=== PATIENT | female | born 1950 | race Caucasian/White ===

== ENCOUNTER → 2016-11-14 | Outpatient (CLI) | payer MEDICARE, OTHER ==
[~2016-11-14] MED LIST: CARV6.252 PO; DIGO0.25 PO; FURO40TA PO; LISI10TA3 PO
[2016-11-14 14:26] LABS: ANION GAP 11 MEQ/L (5-15); AST (GOT) 23 U/L (15-37); BICARBONATE 28.4 MEQ/L (21.0-32.0); BLOOD UREA NITROGEN 11 MG/DL (7-18); CHLORIDE 98 MEQ/L (98-107); GLOMERULAR FILTRATION RATE 52 ML/MIN (>89); GLUCOSE,FASTING 103 MG/DL (74-99); POTASSIUM 3.1 MEQ/L (3.5-5.1); SODIUM (NA) 137 MEQ/L (136-145)
[2016-11-14 14:27] LABS: ALT (GPT) 19 U/L (10-53)
[2016-11-14 14:38] LABS: ALKALINE PHOSPHATASE 47 U/L (45-117); TOTAL BILIRUBIN ADULT 0.7 MG/DL (0.2-1.0)
== END ==
LOC: CLAB 13:17
PROVIDERS: ATTEND Internal Medicine Interventional Cardiology
DX: I42.9 Cardiomyopathy, unspecified (principal); I50.9 Heart failure, unspecified
CPT/HCPCS: 36415; 80053; 84443

== ENCOUNTER → 2016-11-21 | Outpatient (CLI) | payer MEDICARE, OTHER ==
[2016-11-21 13:59] LABS: POTASSIUM 5.5 MEQ/L (3.5-5.1)
== END ==
LOC: CLAB 13:11
PROVIDERS: ATTEND Internal Medicine Interventional Cardiology
DX: I50.9 Heart failure, unspecified (principal); R06.02 Shortness of breath; Q25.3 Supravalvular aortic stenosis; I34.0 Nonrheumatic mitral (valve) insufficiency; I36.1 Nonrheumatic tricuspid (valve) insufficiency; I42.9 Cardiomyopathy, unspecified; I47.1 Supraventricular tachycardia
CPT/HCPCS: 36415; 80048

== ENCOUNTER 2016-12-06 10:15 | Day surgery (SDC) | payer MEDICARE, OTHER ==
[~2016-12-06] VITALS: Ht 167.6 cm; Wt 80.8 kg
[2016-12-06] MEDS ORDERED: IOHEXOL 350 MG/ML 50 ML BTL (for Cath Lab) OTHER ONE (10:16)
[2016-12-06] MEDS ORDERED: IOHEXOL 350 MG/ML 100 ML BTL (for Cath Lab) OTHER ONE (10:16)
[2016-12-06] MEDS ORDERED: NS 1000P @30 MLS/HR (KVO) IV SCH (10:45)
[2016-12-06 11:11] VITALS: BP 113/66; PULSE 59; RESP 18; TEMP 98.2; O2SAT 97
[2016-12-06] MEDS ORDERED: LISI10TA3 PO (11:14)
[2016-12-06] MEDS ORDERED: DIGO0.25 PO (11:14)
[2016-12-06] MEDS ORDERED: CARV6.252 PO (11:14)
[2016-12-06] MEDS ORDERED: FURO40TA PO (11:14)
[2016-12-06 11:43] LABS: AUTOMATED NEUTROPHIL # 4.4 TH/MM3 (1.8-7.7); BASOPHIL # 0.1 TH/MM3 (0-0.2); EOSINOPHIL # 0.5 TH/MM3 (0-0.4); EOSINOPHIL % 6.8 % (0.0-4.0); HEMATOCRIT 43.9 % (35.0-46.0); HEMO FLAGS DIFF FINAL; LYMPH % 19.1 % (9.0-44.0); LYMPHOCYTE # 1.3 TH/MM3 (1.0-4.8); MEAN CELL VOLUME 93.2 FL (80.0-100.0); MEAN CORPUSCULAR HEMOGLOBIN 30.8 PG (27.0-34.0); MONO % 9.2 % (0.0-8.0); NEUT % 63.9 % (16.0-70.0); PLATELET COUNT 195 TH/MM3 (150-450); RED BLOOD COUNT 4.71 MIL/MM3 (4.00-5.30); RED CELL DISTRIBUTION WIDTH 13.5 % (11.6-17.2); WHITE BLOOD COUNT 6.8 TH/MM3 (4.0-11.0)
[2016-12-06 11:54] LABS: BICARBONATE 29.6 MEQ/L (21.0-32.0); POTASSIUM 4.1 MEQ/L (3.5-5.1)
[2016-12-06 11:56] LABS: APTT (PATIENT) 26.7 SEC (24.3-30.1); PROTHROMBIN TIME - PATIENT 10.6 SEC (9.8-11.6)
[2016-12-06] MEDS ORDERED: HEPARIN-NS/PF INJ 1,000 ML ONE (12:16)
[2016-12-06] MEDS ORDERED: MIDAZOLAM HCL 2 MG/2 ML VIAL ONE (12:16)
--- NOTE | 2016-12-06 13:57 | EKG ---
Date Performed: 12/06/2016 Time Performed: 11:41:24 PTAGE: 66 years EKG: Sinus bradycardia. Possible left atrial abnormality Left ventricular hypertrophy Extensive ST-T changes are probably due to ventricular hypertrophy Abnormal ECG NO PREVIOUS TRACING DOCTOR: Tacho Jameson Interpretating Date/Time 12/06/2016 13:53:41
[2016-12-06] MEDS ORDERED: HEPARIN SODIUM - IV 10,000 UNITS/10 ML VIAL ONE (15:00)
--- NOTE | 2016-12-06 15:28 | CATHPROC ---
[facility] HIS Report Study Information Study Number Admission Scheduled Start Study Start [id number] Dec 06 2016 10:15AM 12/06/2016 Dec 06 2016 12:06PM [place] [facility] Cardiac Catheterization Admit Source Facility Department Other [facility] - Insurance Account Executive Physician and Clinical Staff Initial Rolando Esquivel Histology Specialist Alexa Kruger BSRN Recorder Nakia Blas,RT(R) Scrub Bess Mendez,SHEEBA TECH2 Procedures Performed Procedure Location (Site) Vessel Name Angiogram LV LV Ventricle Coronary Angiograms LCA Left Coronary Coronary Angiograms RCA Right Coronary Coronary Angiograms AO Arch (A1) Aorta Equipment Time Emergency Department Clinician Description Size Mfg Part Number Used/Scraped [id number] 12:24 TERRY CARMICHAEL SWAN BRENT CATHETER FR 7 Used *[id number] TRANSDUCER, TRUWAVE [id number] 12:24 TERRY CARMICHAEL * Used W/STOCKCOCK *[id number] TRANSDUCER, TRUWAVE [id number] 12:24 TERRY CARMICHAEL * Used W/STOCKCOCK *[id number] 534-548T *[id number] 534-518T *[id number] [id number] *[id number] 12:24 [employer] INDUSTRIES PACK, CCL CUSTOM * Used *[id number] 12:24 [employer] PACER PEN, SKIN DUAL W/ RULER * Used *[id number] 12:24 [employer] WIRE, 3MMJ .035 180CM 180CM Used *[id number] PROBE COVER, STERILE [id number] 12:24 [employer] MEDICAL * Used ULTRASOUND W/ GEL *[id number] 12:24 NAMIC MANIFOLD, 2 PORT * Used *[id number] 12:24 NAMIC MANIFOLD, 4 PORT * Used *[id number] 12:24 NAMIC TUBING, HIGH PRESSURE 48" 48" Used *[id number] 12:24 [employer]COMED OMNIPAQUE, 350 MG, 150ML 150ML [id number] Used 14:20 [employer]ED OMNIPAQUE, 350 MG, 50ML 50ML [id number] Used 14:25 [employer]COMED OMNIPAQUE, 350 MG, 50ML 50ML [id number] Used [id number] 12:24 [employer],WARM AIR CCL * Used *[id number] 12:24 TER[employer] MEDICAL SHEATH, FR5 TERUMO (10CM) FR 5 Used *[id number] 12:24 [employer] MEDICAL SHEATH, FR7 TERUMO (10CM) FR 7 Used *[id number] History: Current Medications Medication Dosage/Unit Route Frequency Last Date/Time Taken ASA Beta Kelley LISINOPRIL DIGOXIN LASIX History: Allergies Allergy Reaction NKDA History: Risk Factors Family History of Hypertension Dyslipidemia Previous MT Previous Heart Failure Premature CAD Yes No No Yes Yes Prior Valve Prior PCI Prior CABG Surgery No No No Cerebrovascular Peripheral Artery Chronic Lung On Dialysis Diabetes Disease Disease Disease No No No Yes No History: Symptoms/Diagnosis Selection Items SOB History: Stress Tests Stress or Imaging Studies Performed No History: Other Current Smoker No Labs Hgb (g/dl) Hct (%) WBC (l/cumm) Platelets (thousands) 11.60-17.00 35.00-51.00 4.00-11.00 150.00-450.00 14.5 43.9 6.8 195 Glucose (mg/dl) BUN (mg/dl) Creatinine (mg/dl) BUN:Creatinine (1:x) 74.00-106.00 7.00-18.00 0.50-1.30 10.00-20.00 110 14 0.9 15.6 Na (meq/l) K (meq/l) 136.00-145.00 3.50-5.10 138 4.1 INR (PTT:PT) 0.90-1.10 1 CPK-MB (ng/ML) 0.50-3.60 Not Drawn Medication Medication Total Dose (Bolus/Oral) Medication Total Dosage/Unit 1% XYLOCAINE 20 mL FENTANYL 50 mcg HEPARIN 3000 units VERSED 1 mg Medications (Bolus/Oral) Medication Time Given Dosage/Unit Administered By Reason 12/06/2016 12:19:30 VERSED 0.5 mg Alexa Kruger PM 0.5 mg VERSED given in lab by Alexa Kruger BSRN in Left Antecubital via Peripheral IV. 12/06/2016 12:22:30 FENTANYL 25 mcg Alexa Kruger PM 25 mcg FENTANYL given in lab by Alexa Kruger BSRN in Left Antecubital via Peripheral IV. 1% XYLOCAINE 12/06/2016 1:54:46 PM 20 mL Rolando Parada 20 mL 1% XYLOCAINE given in lab by Rolando Parada in Right Groin via Subcutaneous. VERSED 12/06/2016 1:57:01 PM 0.5 mg Alexa Kruger 0.5 mg VERSED given in lab by Alexa Kruger BSRN in Left Antecubital via Peripheral IV. Ordered b y Rolando Parada. FENTANYL 12/06/2016 1:58:03 PM 25 mcg Alexa Kruger 25 mcg FENTANYL given in lab by Alexa Kruger BSRN in Left Antecubital via Peripheral IV. Ordered by Rolando Parada. HEPARIN 12/06/2016 2:02:25 PM 3000 units Alexa Kruger 3000 units HEPARIN given in lab by Alexa Kruger BSRN in Left Antecubital via Peripheral IV. Medication (Drip) Medication Time Given Dosage/Unit Concentration/Unit Diluent (ml) Solution 12/06/2016 12:09:54 IV Solutions 50 mL (IV) NaCl .9 PM IV Solutions given in lab by Alexa Kruger BSRN in Left Antecubital via Peripheral IV. Pump/Drip Flow using NaCl .9. Initial Case Assessment Cardiovascular HR Rhythm NIBP Chest Pain 50 yamilka 122/65 0 Edema Present Skin color Skin None Normal Warm Dry Circulatory - Right Pulses Dorsalis Pedis Femoral 1 3 Scale (0,1,2,3,4,d) Circulatory - Left Pulses Dorsalis Pedis Femoral 1 3 Scale (0,1,2,3,4,d) Neurological State Oriented to time-place- Alert Moves all extremities person Respiration - General Respiration Rate SpO2 (%) (B/min) 19 99 Chronological Log Time Study Chronological Log 12:07:00 Patient arrived via Bed. 12:09:33 Patient Name, D.O.B, / Armband Verified By R.N. 12:09:34 Consent signed by the physician and the patient and verified by the Insurance Account Executive staff. 12:09:35 Pre-op and post- op instructions given; patient acknowledges understanding of instructions. 12:09:35 Verbal Stimulation=2 Physical Stimulation=2 Airway=2 Respiration=2 TOTAL=8. (0=absent, 1=li mited, 2=present) 12:09:37 Presedation assessment performed by Insurance Account Executive RN. 12:09:43 Patient has been NPO for More than 6Hrs. 12:09:43 Skin Breakdown- fungal type of rash in bilateral groins, stomach crease, and under both lucia asts 12:09:49 Patient Warmer Placed on the Table. 12:09:50 Renny Prominences Protected 12:09:52 A # 20 IV was noted in the Antecubital (left). Grade = 0 12:09:54 IV Solutions given in lab by Alexa Kruger BSRN in Left Antecubital via Peripheral IV. Pump/Drip Flow using NaCl .9. 12:09:58 History and physical on the chart or being dictated. Assessment: Initial Case, HR=50 BPM, Rhythm=yamilka, SDHW=478/65 mmhg, Chest Pain=0, Edema=None, Color=Normal, Skin = Warm, Dry Right Pulses: Juancarlos Ped=1, Femoral=3 12:10:00 Left Pulses: Juancarlos Ped=1, Femoral=3 Neurological: State=Alert, Ox3, GILBERT Respiration: Resp=19 B/min, SpO2=99 % Vitals capture started with the following parameters, Patient=Adult, Interval=5 min, Initial Pr rgxkdn=937 mmHg, 12:11:11 Deflation Rate=5 mmHg, Cuff placed on Right Arm 12:11:46 HR=57 bpm, VWSR=249/65 mmhg, SpO2=98.0 %, Resp=22 B/min 12:16:19 Reference ECG taken 12:16:47 HR=52 bpm, LQJQ=875/63 mmhg, SpO2=98.0 %, Resp=14 B/min 12:19:30 0.5 mg VERSED given in lab by Alexa Kruger BSRN in Left Antecubital via Peripheral IV. 12:21:46 HR=51 bpm, RKMG=362/63 mmhg, SpO2=96.0 %, Resp=16 B/min 12:22:30 25 mcg FENTANYL given in lab by Alexa Kruger BSRN in Left Antecubital via Peripheral I V. 12:25:11 Bilateral groins prepped with 2% chlorhexidine, and draped after a 3 minute waiting time. 12:26:43 HR=51 bpm, ALEU=367/73 mmhg, SpO2=96.0 %, Resp=26 B/min 12:31:42 HR=57 bpm, PDJY=543/57 mmhg, SpO2=96.0 %, Resp=16 B/min 12:36:45 HR=47 bpm, AEJI=802/55 mmhg, SpO2=96.0 %, Resp=17 B/min 12:43:17 Vitals capture stopped. Communication error with scheduling, Dr Parada states he scheduled for 1330, we were ready at 1230. Moved pt back 12:44:00 to her bed, remained in room with pt. Vitals capture started with the following parameters, Patient=Adult, Interval=5 min, Initial Pr yfrikz=741 mmHg, 13:12:41 Deflation Rate=5 mmHg, Cuff placed on Right Arm 13:12:45 Pt moved to table. 13:13:15 HR=67 bpm, MNQI=773/70 mmhg, SpO2=96.0 %, Resp=20 B/min 13:18:16 HR=58 bpm, RICW=103/60 mmhg, SpO2=97.0 %, Resp=16 B/min 13:21:58 Bilateral groins prepped with 2% chlorhexidine, and draped after a 3 minute waiting time. 13:23:15 HR=60 bpm, DXXU=785/59 mmhg, SpO2=92.0 %, Resp=14 B/min 13:28:14 HR=58 bpm, GUHC=753/61 mmhg, SpO2=94.0 %, Resp=18 B/min 13:29:00 MD paged 13:29:32 Pressure channel 1 zeroed. 13:30:00 MD responded 13:33:15 HR=60 bpm, TXWH=320/61 mmhg, SpO2=94.0 %, Resp=13 B/min 13:38:14 HR=60 bpm, QDDS=935/63 mmhg, SpO2=95.0 %, Resp=11 B/min 13:43:15 HR=62 bpm, TJHR=836/67 mmhg, SpO2=94 %, Resp=17 B/min 13:45:00 MD arrived. 13:48:14 HR=64 bpm, KYAS=319/70 mmhg, SpO2=94.0 %, Resp=16 B/min 13:53:04 Pressure channel 2 zeroed. 13:53:13 HR=65 bpm, VZHN=138/66 mmhg, SpO2=91.0 %, Resp=19 B/min Time Out. Correct patient, correct procedure, correct physician, power injector loaded, or not loaded with contrast with 13:53:56 surgical team present. Time Out Concurred by MD and individual staff in procedure. 13:54:20 Case Start 13:54:46 20 mL 1% XYLOCAINE given in lab by Rolando Parada in Right Groin via Subcutaneous. 13:56:01 Access site was Right Femoral Vein, via ultrasound. 13:56:24 A SHEATH, FR7 TERUMO (10CM) FR 7 was advanced into the Fem Vein (right) using the Percutane ous technique. 0.5 mg VERSED given in lab by Alexa Kruger BSRN in Left Antecubital via Peripheral IV. Ord ered by Tal, 13:57:01 Rolando. 13:57:27 Access site was Right Femoral Artery. 13:57:32 A SHEATH, FR5 TERUMO (10CM) FR 5 was advanced into the Fem Art (right) using the Percutaneo us technique. 25 mcg FENTANYL given in lab by Alexa Kruger BSRN in Left Antecubital via Peripheral IV. O rdered by Tal, 13:58:03 Rolando. 13:58:16 HR=63 bpm, NIBP=97/41 mmhg, SpO2=98.0 %, Resp=16 B/min A SWAN BRENT CATHETER FR 7 was advanced over a wire. OMNIPAQUE, 350 MG, 150ML 150ML was used for 13:58:52 injections. Recorded Pressure: MPA, HR=61, Condition=Condition 1 14:00:59 (Main Pulmonary Artery) MPA 18/2/9 A PIGTAIL ANG. INFINITI CATHETER FR 5 was advanced over a wire. OMNIPAQUE, 350 MG, 150ML 150ML was used 14:01:37 for injections. 14:02:25 3000 units HEPARIN given in lab by Alexa Kruger BSRN in Left Antecubital via Periphera l IV. 14:03:15 DV=483 bpm, NIBP=90/57 mmhg, SpO2=91.0 %, Resp=15 B/min 14:04:34 Saturation: Site=Ao (Aorta) , O2=94.7 %, Hgb=14.5 gm/dl, Condition=Condition 1. Used in garrick culation. 14:04:34 Saturation: Site=LV (Left Ventricle) , O2=94.7 %, Hgb=14.5 gm/dl, Condition=Condition 1. Us ed in calculation. 14:06:22 Saturation: Site=PA (Pulmonary Artery) , O2=69.8 %, Hgb=14.5 gm/dl, Condition=Condition 1. Used in calculation. Recorded Pressure: LV, MPA, HR=64, Condition=Condition 1 14:07:00 (Left Ventricle) LV 200/-1/5, (Main Pulmonary Artery) MPA 25/1/11 Thermo CO: CO=4.5 l/m, HR=70 bpm, Condition=Condition 1. Used in calculation. 14:08:10 Equipment: Description and Size=SWAN BRENT CATHETER FR 7, Type=Bath Probe, CC=0.579 Injectant: Temp=19.0 - 22.0 Celsius, Volume=10.0 ml 14:08:14 HR=76 bpm, NIBP=89/57 mmhg, SpO2=94.0 %, Resp=12 B/min, Pain=0, Triston=10, Barahona=2 Thermo CO: CO=3.3 l/m, HR=74 bpm, Condition=Condition 1. Used in calculation. 14:08:45 Equipment: Description and Size=SWAN BRENT CATHETER FR 7, Type=Bath Probe, CC=0.579 Injectant: Temp=19.0 - 22.0 Celsius, Volume=10.0 ml Thermo CO: CO=4.3 l/m, HR=70 bpm, Condition=Condition 1. Used in calculation. 14:09:28 Equipment: Description and Size=SWAN BRENT CATHETER FR 7, Type=Bath Probe, CC=0.579 Injectant: Temp=19.0 - 22.0 Celsius, Volume=10.0 ml Thermo CO: CO=3.9 l/m, HR=69 bpm, Condition=Condition 1. Used in calculation. 14:10:01 Equipment: Description and Size=SWAN BRENT CATHETER FR 7, Type=Bath Probe, CC=0.579 Injectant: Temp=19.0 - 22.0 Celsius, Volume=10.0 ml Recorded Pressure: LV, PCW, HR=42, Condition=Condition 1 14:12:28 (Left Ventricle) LV 223/3/17, (Pulmonary Capillary Wedge) PCW 14//8 Recorded Pressure: LV, MPA, HR=78, Condition=Condition 1 14:13:06 (Left Ventricle) LV 214/0/7, (Main Pulmonary Artery) MPA 26/3/13 14:13:15 HR=76 bpm, NIBP=90/54 mmhg, SpO2=95.0 %, Resp=10 B/min, Pain=0, Triston=10, Barahona=2 Saturation: Site=PA (Pulmonary Artery) , O2=71.8 %, Hgb=14.5 gm/dl, Condition=Condition 1. Not used in 14:14:18 calculation. Recorded Pressure: LV, RV, HR=68, Condition=Condition 1 14:14:54 (Left Ventricle) LV 228/2/11, (Right Ventricle) RV 30/-3/0 14:16:42 Saturation: Site=RV (Right Ventricle) , O2=70.3 %, Hgb=14.5 gm/dl, Condition=Condition 1. U sed in calculation. Recorded Pressure: LV, RA, HR=96, Condition=Condition 1 14:17:04 (Left Ventricle) LV 241/5/12, (Right Atrium) RA 2/0/-1 14:18:17 Saturation: Site=RA (Right Atrium) , O2=70.1 %, Hgb=14.5 gm/dl, Condition=Condition 1. Used in calculation. 14:18:52 [place] Catheter Removed 14:18:55 HR=87 bpm, DCGR=985/63 mmhg, SpO2=91.0 %, Resp=27 B/min 14:19:34 The LV was injected at 12 cc/sec for a total of 36. OMNIPAQUE, 350 MG, 50ML 50ML used. Recorded Pressure: LV, HR=64, Condition=Condition 1 14:22:41 (Left Ventricle) LV 215/6/22 Recorded Pressure: LV, Ao, HR=64, Condition=Condition 1 14:22:56 (Left Ventricle) LV 215/6/26, (Aorta) Ao 111/48/74 14:23:19 HR=64 bpm, HLNE=983/61 mmhg, SpO2=95.0 %, Resp=11 B/min 14:24:13 The AO Arch (A1) was injected and visualized at various angles. OMNIPAQUE, 350 MG, 50ML 50M L used. 20ml for 40 14:25:38 Catheter was removed A JL 3.5 INFINITI CATHETER FR 5 was advanced over a wire. OMNIPAQUE, 350 MG, 150ML 150ML was us ed for 14:27:50 injections. 14:28:18 HR=67 bpm, ETOO=048/63 mmhg, SpO2=94.0 %, Resp=15 B/min, Pain=0, Triston=10, Barahona=2 14:30:27 The LCA was injected and visualized at various angles. OMNIPAQUE, 350 MG, 150ML 150ML used . After removing the current catheter a JL 5.0 INFINITI CATHETER FR 5 was advanced over a WIRE, 3 MMJ .035 180CM 14:32:04 180CM. 14:33:19 The LCA was injected and visualized at various angles. OMNIPAQUE, 350 MG, 150ML 150ML used . 14:33:22 HR=67 bpm, KDMJ=379/61 mmhg, SpO2=93.0 %, Resp=15 B/min After removing the current catheter a AR MOD INFINITI CATHETER FR 5 was advanced over a WIRE, 3 MMJ .035 180CM 14:36:19 180CM. 14:38:17 HR=69 bpm, KSUL=036/69 mmhg, SpO2=95.0 %, Resp=11 B/min, Pain=0, Triston=10, Barahona=2 14:38:23 The RCA was injected and visualized at various angles. OMNIPAQUE, 350 MG, 150ML 150ML used . 14:38:51 Catheter was removed 14:43:20 HR=68 bpm, YUXF=478/72 mmhg, SpO2=94.0 %, Resp=10 B/min, Pain=0, Triston=10, Barahona=2 14:48:00 Case End 14:48:19 HR=65 bpm, HATA=590/69 mmhg, SpO2=95.0 %, Resp=10 B/min, Pain=0, Triston=10, Barahona=2 14:50:41 Activated Clotting Time Drawn 14:53:22 HR=64 bpm, OEFN=473/60 mmhg, SpO2=96 %, Resp=20 B/min 14:55:26 ACT (Normal Range 90-180) = 185 14:55:47 Arterial Sheath removed; pressure applied to access site. 14:58:17 HR=68 bpm, IHHR=800/75 mmhg, SpO2=95.0 %, Resp=20 B/min 15:03:22 HR=66 bpm, OAWB=295/71 mmhg, SpO2=97.0 %, Resp=23 B/min 15:03:50 Venous Sheath removed; pressure applied to access site. 15:08:21 HR=63 bpm, UAIQ=879/74 mmhg, SpO2=95.0 %, Resp=12 B/min 15:09:22 Sterile dressing applied to site 15:09:23 No case complications noted. 15:09:24 Cine recording checked. 15:09:26 Bedside Report will be given. 15:09:45 Contrast Scanned 15:09:46 A Left and Right Heart Cath was performed. 15:13:22 HR=64 bpm, RCEF=082/75 mmhg, SpO2=96.0 %, Resp=23 B/min 15:18:18 Vitals capture stopped. End Study - Contrast Media Used In Study Contrast Total Opened (mL) Total Used (mL) Total Wasted (mL) Omnipaque 110 110 0 End Study - Maximum Contrast Load Max Contrast Load (mL) 449.0 End Study - Radiation Exposure Fluoro Time (minutes) 5.2 End Study - Patient Disposition Complications Transferred To Interventional Outcome No Telemetry Bed No attempt made
--- NOTE | 2016-12-06 16:52 | PD.CAR.PN ---
CVT Progress Note Subjective/Hospital Course: sts data discussed with pt RISK SCORES About the STS Risk Calculator Procedure: AV Replacement Risk of Mortality: 1.486% Morbidity or Mortality: 13.992% Long Length of Stay: 5.66% Short Length of Stay: 37.531% Permanent Stroke: 1.108% Prolonged Ventilation: 8.536% DSW Infection: 0.29% Renal Failure: 1.989% Reoperation: 6.22% Objective: Vital Signs Date Time Temp Pulse Resp B/P (MAP) Pulse Ox O2 Delivery O2 Flow Rate FiO2 12/06/16 15:36 95 Room Air 12/06/16 11:11 98.2 59 18 113/66 (82) 97 Labs: Laboratory Tests Test 12/06/16 11:03 White Blood Count 6.8 TH/MM3 (4.0-11.0) Red Blood Count 4.71 MIL/MM3 (4.00-5.30) Hemoglobin 14.5 GM/DL (11.6-15.3) Hematocrit 43.9 % (35.0-46.0) Mean Corpuscular Volume 93.2 FL (80.0-100.0) Mean Corpuscular Hemoglobin 30.8 PG (27.0-34.0) Mean Corpuscular Hemoglobin Concent 33.0 % (32.0-36.0) Red Cell Distribution Width 13.5 % (11.6-17.2) Platelet Count 195 TH/MM3 (150-450) Mean Platelet Volume 9.5 FL (7.0-11.0) Neutrophils (%) (Auto) 63.9 % (16.0-70.0) Lymphocytes (%) (Auto) 19.1 % (9.0-44.0) Monocytes (%) (Auto) 9.2 % (0.0-8.0) Eosinophils (%) (Auto) 6.8 % (0.0-4.0) Basophils (%) (Auto) 1.0 % (0.0-2.0) Neutrophils # (Auto) 4.4 TH/MM3 (1.8-7.7) Lymphocytes # (Auto) 1.3 TH/MM3 (1.0-4.8) Monocytes # (Auto) 0.6 TH/MM3 (0-0.9) Eosinophils # (Auto) 0.5 TH/MM3 (0-0.4) Basophils # (Auto) 0.1 TH/MM3 (0-0.2) CBC Comment DIFF FINAL Differential Comment Prothrombin Time 10.6 SEC (9.8-11.6) Prothromb Time International Ratio 1.0 RATIO Activated Partial Thromboplast Time 26.7 SEC (24.3-30.1) Blood Urea Nitrogen 14 MG/DL (7-18) Creatinine 0.94 MG/DL (0.50-1.00) Random Glucose 110 MG/DL (74-106) Calcium Level 9.8 MG/DL (8.5-10.1) Sodium Level 138 MEQ/L (136-145) Potassium Level 4.1 MEQ/L (3.5-5.1) Chloride Level 101 MEQ/L (98-107) Carbon Dioxide Level 29.6 MEQ/L (21.0-32.0) Anion Gap 7 MEQ/L (5-15) Estimat Glomerular Filtration Rate 59 ML/MIN (>89) Result Diagram: 12/06/16 1103 12/06/16 1103 Francisca Guzman Dec 06, 2016 16:52
--- NOTE | 2016-12-06 17:19 | RADRPT ---
EXAM DATE/TIME: 12/06/2016 16:47 [place] COMPARISON: No previous studies available for comparison. INDICATIONS : PreOp AVR MEDICAL HISTORY : Congestive heart failure. Shortness of breath. SURGICAL HISTORY : None. ENCOUNTER: Initial ACUITY: 1 day PAIN SCORE: 0/10 LOCATION: Bilateral neck PEAK SYSTOLIC VELOCITIES (cm/sec): ICA/CCA RATIO: Right: 1.3 Left: 0.6 ICA: Right: 95.3 Left: 69.4 CCA: Right: 72.4 Left: 111.5 ECA: Right: 66.6 Left: 80.1 VERTEBRAL: Right: 53.9 antegrade Left: 56.7 antegrade Elevated flow velocities and ICA/CCA ratios have been found to correlate with increased degrees of vessel stenosis, calculated as percentage of diameter relative to a normal segment of distal ICA/CCA FINDINGS: RIGHT CAROTID: There is no evidence for a hemodynamically significant carotid stenosis. Minimal int imal hyperplasia is present with scattered calcific plaque. LEFT CAROTID: There is no evidence for a hemodynamically significant carotid stenosis. Minimal inti mal hyperplasia is present with scattered calcific plaque. VERTEBRAL ARTERIES: Flow is antegrade in both vertebral arteries. MISCELLANEOUS: There are no ancillary masses or adenopathy. CONCLUSION: Negative examination for a hemodynamically significant carotid stenosis. Board Certified Radiologist. This report was verified electronically.
[2016-12-06 21:11] LABS: BLOOD, URINE NEG (NEG); COMMENT (UR) CULT NOT INDICATED; CULTURE IF INDICATED CULT NOT INDICATED; GLUCOSE,URINE NEG (NEG); KETONE, URINE NEG (NEG); MUCUS URINE FEW /lpf (OCC); NITRITE,URINE NEG (NEG); PH, URINE 6.5 (5.0-8.5); SQUAMOUS EPITHELIAL CELL URINE 1 /hpf (0-5); URINE COLOR LIGHT-YELLOW (YELLW/STRAW)
[2016-12-06 22:10] LABS: AST (GOT) 31 U/L (15-37)
[2016-12-06 22:14] LABS: ALKALINE PHOSPHATASE 57 U/L (45-117); ALT (GPT) 52 U/L (10-53); INDIRECT BILIRUBIN 0.5 MG/DL (0.0-0.8); TOTAL BILIRUBIN ADULT 0.6 MG/DL (0.2-1.0)
--- NOTE | 2016-12-06 22:17 | MA ---
cc: LEEANN BEAR DATE 12/06/2016 INDICATIONS Severe aortic stenosis, congestive heart failure, cardiomyopathy with moderate left ventricle dysfunction. PROCEDURES PERFORMED 1. Retrograde left and right heart catheterization with left ventriculography, selective coronary angiography and thermodilution cardiac output determination. 2. Thoracic aortography including aortic root, ascending thoracic aorta, aortic arch, and descending thoracic aorta. 3. Moderate sedation. ACCESS SITE Right femoral artery and right femoral vein using ultrasound guidance. EQUIPMENT USED [place] catheter, 5 Lebanese pigtail catheter, 5-Lebanese JL-5 and AR modified coronary artery catheters. MEDICATIONS 1. Versed IV. 2. Fentanyl IV. 3. Heparin IV. CONTRAST Omnipaque 110 mL. COMPLICATIONS None. BLOOD LOSS Less than 10 mL. METHOD OF HEMOSTASIS Manual compression. RESULTS Hemodynamics. Heart rate 65 beats per minute. Left ventricular end-diastolic pressure 6 mmHg. Left ventricle 215/6. Aorta 111/48/74. Mean pulmonary capillary wedge pressure 8 mmHg. Pulmonary artery 28//13/20. Right ventricle 28/3. Mean right atrial pressure 2 mmHg. across the aortic valve 104 mmHg. Mean gradient 77 mmHg. Aortic valve area 0.54 cm square. Cardiac output 4.8 liters per minute by thermodilution. Cardiac index 2.5 liters per minute per meter squared. run left ventricle 94.7%, pulmonary artery 71.8%, right ventricle 70.3%, right atrium 70.1%. There was no evidence of cardiac shunt. LEFT VENTRICULOGRAPHY Ejection fraction 35%. Moderate global hypokinesis, no mitral regurgitation. THORACIC AORTOGRAPHY Thoracic aortography showed mild dilatation of the ascending thoracic aorta and moderate aortic insufficiency. CORONARY ANGIOGRAPHY Left main coronary artery patent. Left anterior descending artery patent. D-1 is patent. Left circumflex artery patent. OM-1 patent. Right coronary artery is a dominant vessel which is patent. PDA patent. PLV patent. DIAGNOSES 1. Very severe calcific aortic stenosis. 2. Moderate aortic insufficiency. 3. Moderate left ventricular dysfunction consistent with nonischemic cardiomyopathy. 4. Patent coronary arteries. 5. DISPOSITION Ms. Reeder was found to have evidence of very severe aortic stenosis and no evidence of significant coronary artery disease. I recommend aortic valve replacement. Dr. Boo will be consulted for cardiothoracic surgery. The plan was discussed with the patient. MD JAIDA Jones/MICHAELA /3:23 PM /9:48 PM
[2016-12-06 22:33] LABS: HEMOGLOBIN A1a 1.4 %; HEMOGLOBIN A1b 1.9 %; HEMOGLOBIN Ao 84.4 %; HEMOGLOBIN LA1C 2.1 %
--- NOTE | 2016-12-07 07:53 | MB ---
cc: MAGDALENO RHODES MD DATE OF CONSULTATION 12/06/2016 DATE OF 1950 HISTORY A 66-year-old patient of Dr. Jose C Jerry, Dr. Parada who apparently has been having a persistent cough off and on for years, had some bronchitis about six weeks ago with some fever and chills, some recent fatigue. She went for chest x-ray where they found that she had an enlarged heart. She was therefore sent to Dr. Parada for a cardiac workup. He did an echocardiogram that showed severe aortic stenosis with a gradient of 116 mmHg, valve area 0.4, PA pressure of 39, moderate mitral regurgitation, moderate tricuspid regurgitation. EF of 30%. The patient came in for elective heart catheterization which showed no nonobstructive coronary disease. EF of 35%. Pulmonary capillary wedge pressure of 8. PA pressure 28/13, mean of 20. RV pressure 28. Right atrial pressure of 2. We were consulted for evaluation for aortic valve replacement. PAST MEDICAL HISTORY The patient's past medical history relatively unremarkable. She was just recently diagnosed with a severe aortic stenosis, congestive heart failure with moderate to severe LV dysfunction, EF of 30-35%, cardiomyopathy. PAST SURGICAL HISTORY No past surgical history. ALLERGIES No known allergies. MEDICATIONS Home meds include: 1. Coreg 6.25 b.i.d. 2. Lisinopril 10 p.o. daily. 3. Lasix 40 daily with potassium 20 daily. 4. Digoxin 0.25 p.o. daily. FAMILY HISTORY Estranged from both her parents. SOCIAL HISTORY The patient , no children. No tobacco or alcohol. 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 REVIEW OF SYSTEMS GENERAL: No night sweats, fever, heat and cold intolerance. SKIN: No psoriasis, itching or hives. HEENT: No blurred vision, hearing loss. RESPIRATORY: Positive for shortness of breath. CARDIOVASCULAR: As above in HPI. GASTROINTESTINAL: No diarrhea, vomiting. GENITOURINARY: No burning, frequency, urgency. CENTRAL NERVOUS SYSTEM: No history of TIA, CVA, seizure disorder. ENDOCRINE: No history of diabetes and/or hypothyroidism. PHYSICAL EXAMINATION VITAL SIGNS: Blood pressure 113/66, heart rate 60, temperature max 98.2, room air sat 95%. GENERAL: Patient is awake, alert in no acute distress. HEENT: Head is normocephalic, atraumatic. Pupils equal and reactive. Oral mucosa pink, moist. NECK: Supple. No JVD. CARDIOVASCULAR: Heart sounds S1-S2, regular rate and rhythm. There is a grade 3/6 systolic ejection murmur. S3 gallop. No rubs. LUNGS: Clear to auscultation. No wheezes, rales or rhonchi. ABDOMEN: Soft, nontender. No masses or organomegaly. EXTREMITIES: No cyanosis, clubbing or edema. NEUROLOGIC: Cranial nerves II-XII intact. No focal deficits. LABORATORY FINDINGS Shows hemoglobin 14, hematocrit of 44, white cell count 6.8, platelet count 195. Sodium 138, potassium 4.1, BUN 14, creatinine 0.94, glucose 110. INR 1.0. IMAGING Radiological exams are pending ultrasound of the carotids, hemoglobin A1c, Chest x-ray. EKG shows sinus rhythm with no acute changes. IMPRESSION This is a very pleasant 66-year-old female with severe aortic stenosis. Procedures, alternatives and risks have been discussed with the patient. Options include minimally invasive aortic valve replacement versus open sternotomy versus minimally invasive approach. Await further evaluation as per Dr. Rhodes after speaking to the patient. She will be setting this up as an outpatient electively. Await her further studies. At this time she is to continue all medications. Her only change will be to stop the lisinopril 3 days prior to surgery. Further planning still pending. DICTATED BY: ERIN Diaz [place] SEYMOUR /4:55 PM /7:47 AM
== END 2016-12-06 19:30 | disposition home or self-care (01) ==
LOC: HDOC 10:15 → HDIC 10:15 → HDOC 19:30
PROVIDERS: ATTEND Internal Medicine Interventional Cardiology
DX: I35.0 Nonrheumatic aortic (valve) stenosis (principal); I34.0 Nonrheumatic mitral (valve) insufficiency; I36.1 Nonrheumatic tricuspid (valve) insufficiency; I42.9 Cardiomyopathy, unspecified; I50.9 Heart failure, unspecified; I47.1 Supraventricular tachycardia; Z01.818 Encounter for other preprocedural examination
CPT/HCPCS: 80048; 80076; 81001; 82810; 83036; 85002; 85025; 85610; 85730; 87641; 93005; 93460; 93567; 93880; C1769; C1893; J1644; J2250; J3010; Q9967

== ENCOUNTER → 2016-12-28 | Outpatient (CLI) | payer MEDICARE ==
[2016-12-28 10:34] LABS: MEAN CELL VOLUME 91.2 FL (80.0-100.0); MEAN CORPUSCULAR HEMOGLOBIN 30.5 PG (27.0-34.0); MEAN CORPUSCULAR HGB CONC 33.5 % (32.0-36.0); PLATELET COUNT 249 TH/MM3 (150-450); RED BLOOD COUNT 4.39 MIL/MM3 (4.00-5.30); RED CELL DISTRIBUTION WIDTH 13.1 % (11.6-17.2); REVIEW FLAG FINAL; WHITE BLOOD COUNT 7.6 TH/MM3 (4.0-11.0)
[2016-12-28 10:42] LABS: APTT (PATIENT) 27.7 SEC (24.3-30.1); INTERNATIONAL NORMALIZED RATIO 0.9 RATIO; PROTHROMBIN TIME - PATIENT 10.4 SEC (9.8-11.6)
[2016-12-28 11:09] LABS: ANION GAP 5 MEQ/L (5-15); BICARBONATE 29.6 MEQ/L (21.0-32.0); BLOOD UREA NITROGEN 23 MG/DL (7-18); CHLORIDE 102 MEQ/L (98-107); GLOMERULAR FILTRATION RATE 58 ML/MIN (>89); GLUCOSE,FASTING 100 MG/DL (74-99); POTASSIUM 4.7 MEQ/L (3.5-5.1); SODIUM (NA) 137 MEQ/L (136-145)
[2016-12-28 11:48] LABS: BLOOD, URINE NEG (NEG); COMMENT (UR) CULT NOT INDICATED; CULTURE IF INDICATED CULT NOT INDICATED; GLUCOSE,URINE NEG (NEG); KETONE, URINE NEG (NEG); MUCUS URINE FEW /lpf (OCC); NITRITE,URINE NEG (NEG); SQUAMOUS EPITHELIAL CELL URINE 2 /hpf (0-5); URINE COLOR YELLOW (YELLW/STRAW)
[2016-12-28 12:40] LABS: MRSA PCR NEGATIVE (NEGATIVE); STAPH AUREUS PCR NEGATIVE (NEGATIVE)
--- NOTE | 2016-12-28 12:47 | RADRPT ---
EXAM DATE/TIME: 12/28/2016 11:27 [facility] COMPARISON: No previous studies available for comparison. INDICATIONS : Evaluate for pneumoina,pneumothorax or communicable disease pre for AVR MEDICAL HISTORY : Congestive heart failure. Shortness of breath. SURGICAL HISTORY : None. ENCOUNTER: Initial ACUITY: 1 day PAIN SCORE: 0/10 LOCATION: Bilateral chest FINDINGS: PA and lateral views of the chest demonstrate the lungs to be symmetrically aerated without evidence of mass, infiltrate or effusion. The cardiomediastinal contours are unremarkable. Osseous structure s are intact. CONCLUSION: No evidence of acute cardiopulmonary disease. Jitendra Ramey MD on December 28, 2016 at 12:45 Board Certified Radiologist. This report was verified electronically.
[2016-12-28 21:04] LABS: HEMOGLOBIN F 1.1 %
[2016-12-28 21:48] LABS: HEMOGLOBIN A1a 1.3 %; HEMOGLOBIN A1b 2.1 %; HEMOGLOBIN Ao 83.9 %; HEMOGLOBIN LA1C 2.1 %; HEMOGLOBIN P3 4.1 %
--- NOTE | 2016-12-29 18:28 | EKG ---
Date Performed: 12/28/2016 Time Performed: 10:05:01 PTAGE: 66 years EKG: SINUS BRADYCARDIA LEFT ATRIAL ENLARGEMENT ST DEVIATION AND MODERATE T-WAVE ABNORMALITY, CON CORK PAINTER AND GRADER LATERAL ISCHEMIA ST DEVIATION AND MODERATE T-WAVE ABNORMALITY, CONSIDER INFERIOR ISCHEMIA ABNOR MAL ECG NO PREVIOUS TRACING DOCTOR: Gen Santana Interpretating Date/Time 12/29/2016 18:19:31
== END ==
LOC: CPRE 09:17
PROVIDERS: ATTEND Thoracic Surgery (Cardiothoracic Vascular Surgery)
DX: Z01.812 Encounter for preprocedural laboratory examination (principal); Z01.810 Encounter for preprocedural cardiovascular examination; Z01.811 Encounter for preprocedural respiratory examination; I35.0 Nonrheumatic aortic (valve) stenosis; R94.31 Abnormal electrocardiogram [ECG] [EKG]
CPT/HCPCS: 71020; 80048; 81001; 83036; 85027; 85610; 85730; 86850; 86900; 86901; 87640; 87641; 93005; 94010

== ENCOUNTER 2017-01-02 08:30 | Inpatient (IN) | payer MEDICARE ==
[~2017-01-02] VITALS: Ht 172.7 cm; Wt 83.5 kg
[2017-01-03] VITALS (10 sets, daily range): BP systolic 108–160; BP diastolic 46–66; PULSE 53–59; RESP 10–18; TEMP 97.8–98.4; O2SAT 91–99
[2017-01-03] MEDS ORDERED: INSULIN REGULAR 100 UNITS in NS 100 ML IV PRN (06:00)
[2017-01-03] MEDS ORDERED: LACTATED RINGER'S 1000 ML IV PRN (06:00)
[2017-01-03] MEDS ORDERED: INSULIN HUMAN REGULAR 1,000 UNITS/10 ML VIAL SQ PRN (06:00)
[2017-01-03] MEDS ORDERED: CHLORHEXIDINE GLUCONATE 2 % 1 PACK (2 CLOTHS) TOPICAL PRN (06:00)
[2017-01-03] MEDS ORDERED: DEXTROSE 50% IN WATER 50 ML VIAL(D50) IV PUSH PRN ×2 (06:00→13:00)
[2017-01-03] MEDS ORDERED: SODIUM CHLORID 0.9% 500 ML IV PRN (06:00)
[2017-01-03] MEDS ORDERED: SODIUM CHLORIDE 0.9% FLUSH 10 ML FLUSH IV FLUSH PRN ×3 (06:00→13:00)
[2017-01-03] MEDS ORDERED: METOPROLOL TARTRATE 25 MG TAB PO SCH (06:00)
[2017-01-03] MEDS ORDERED: METOPROLOL TARTRATE 25 MG TAB PO PRN (06:00)
[2017-01-03] MEDS ORDERED: POVIDONE IODINE 5% (ANTISEPSIS KIT) 4 APPLICATIONS EACH NARE PRN (06:00)
[2017-01-03] MEDS ORDERED: CHLORHEXIDINE GLUCONATE 4% SOLN 120 ML BTL TOPICAL SCH (06:00)
[2017-01-03] MEDS ORDERED: VANCOMYCIN HCL 1000 MG VIAL ONE (06:35)
[2017-01-03] MEDS ORDERED: CUSTODIOL HTK IRR SOLN 3,000 ML ONE (07:26)
[2017-01-03] MEDS ORDERED: POTASSIUM CHLORIDE 20 MEQ/10 ML VIAL ONE (07:27)
[2017-01-03] MEDS ORDERED: MANNITOL INJ 50 ML ONE ×2 (07:28→07:29)
[2017-01-03] MEDS ORDERED: SODIUM BICARBONATE 8.4% INJ 100 ML ONE (07:28)
[2017-01-03] MEDS ORDERED: ALBUMIN 25% INJ 50 ML IV ONE (07:30)
[2017-01-03] MEDS ORDERED: HEPARIN SODIUM - IV 10,000 UNITS/10 ML VIAL ONE ×2 (07:30→09:04)
[2017-01-03] MEDS ORDERED: ceFAZolin 2 GM PREMIX 50 ML ONE ×2 (07:31→11:25)
[2017-01-03] MEDS ORDERED: BUPIVACAINE LIPOSO PF 1.3% INJ 20 ML, SODIUM CHLORIDE 0.9% INJ 20 ML, DEXAMETHASONE INJ... SCH ×4 (08:30)
[2017-01-03] MEDS ORDERED: DEXMEDETOMIDINE HCL 200 MCG/2 ML VIAL ONE (10:05)
--- NOTE | 2017-01-03 10:39 | PD.CAR.PN ---
CVT Progress Note Subjective/Hospital Course: A 66-year-old patient of Dr. Jose C Jerry, Dr. Parada who apparently has been having a persistent cough off and on for years, had some bronchitis about six weeks ago with some fever and chills, some recent fatigue. She went for chest x-ray where they found that she had an enlarged heart. She was therefore sent to Dr. Parada for a cardiac workup. He did an echocardiogram that showed severe aortic stenosis with a gradient of 116 mmHg, valve area 0.4, PA pressure of 39, moderate mitral regurgitation, moderate tricuspid regurgitation. EF of 30%. The patient came in for elective heart catheterization which showed no nonobstructive coronary disease. EF of 35%. Pulmonary capillary wedge pressure of 8. PA pressure 28/13, mean of 20. RV pressure 28. Right atrial pressure of 2. We were consulted for evaluation for aortic valve replacement. PAST MEDICAL HISTORY recently diagnosed with a severe aortic stenosis, congestive heart failure with moderate to severe LV dysfunction, EF of 30-35%, cardiomyopathy. for surgery today (1) CHF (congestive heart failure), NYHA class II (2) Cardiomyopathy (3) Severe aortic stenosis (4) S/P AVR (aortic valve replacement) Francisca Guzman Jan 03, 2017 10:39
[2017-01-03] MEDS ORDERED: ePHEDrine/NS 25 MG/5 ML SYR IV ONE (12:00)
[2017-01-03] MEDS ORDERED: LACTATED RINGER'S 1000 ML INJ 2,000 ML IV ONE (12:00)
[2017-01-03] MEDS ORDERED: PHENYLEPHRINE HCL 10 MG/ML VIAL IV ONE (12:00)
[2017-01-03] MEDS ORDERED: CALCIUM CHLORIDE 10% SOLN 1 GRAM/10 ML SYR IV ONE (12:00)
[2017-01-03] MEDS ORDERED: MAGNESIUM SULFATE 1 GM/2 ML VIAL IV ONE (12:00)
[2017-01-03] MEDS ORDERED: MIDAZOLAM HCL 2 MG/2 ML VIAL IV ONE (12:00)
[2017-01-03] MEDS ORDERED: EPINEPHrine HCL (1:1000) 1 MG/ML VIAL IV ONE (12:00)
[2017-01-03] MEDS ORDERED: PROTAMINE SULFATE 250 MG/25 ML VIAL IV ONE (12:00)
[2017-01-03] MEDS ORDERED: fentaNYL CITRATE 2500 MCG/50 ML VIAL IV ONE (12:00)
[2017-01-03] MEDS ORDERED: SODIUM BICARBONATE 8.4% INJ 50 MEQ/50 ML SYR IV ONE (12:00)
[2017-01-03] MEDS ORDERED: CARDIOPLEGIC IRR 2,000 ML IRRIGATION ONE (12:00)
[2017-01-03] MEDS ORDERED: HEPARIN SODIUM - SQ 10,000 UNITS/ML VIAL SQ ONE (12:00)
[2017-01-03] MEDS ORDERED: EPINEPHrine HCL (1:1000) 30 MG/30 ML VIAL IV ONE (12:00)
[2017-01-03] MEDS ORDERED: LACTATED RINGER'S 1000 ML INJ 500 ML IV PRN (12:53)
[2017-01-03] MEDS ORDERED: POTASSIUM CHLOR 20 MEQ PREMIX 100 ML IV PRN ×3 (13:00)
[2017-01-03] MEDS ORDERED: POTASSIUM CHLORIDE 20 MEQ CONTROLLED RELEASE TAB PO PRN ×2 (13:00)
[2017-01-03] MEDS ORDERED: ALBUMIN 5% INJ 250 ML IV PRN (13:00)
[2017-01-03] MEDS ORDERED: METOPROLOL TARTRATE 5 MG/5 ML VIAL IV PUSH PRN (13:00)
[2017-01-03] MEDS ORDERED: RESP: RACEPINEPHRINE 2.25% 0.5 ML NEB NEB PRN (13:00)
[2017-01-03] MEDS ORDERED: RESP: ALBUTEROL 2.5 MG/IPRATROPIUM 0.5 MG NEB (PRN) NEB (13:00)
[2017-01-03] MEDS ORDERED: Post-op Orders (for Pharmacy) MISC OTHER ONE (13:00)
[2017-01-03] MEDS ORDERED: SODIUM BICARBONATE 8.4% SOLN 50 MEQ/50 ML VIAL IV PUSH PRN ×2 (13:00)
[2017-01-03] MEDS ORDERED: MORPHINE SULFATE 4 MG/ML INJ IV PUSH PRN (13:00)
[2017-01-03] MEDS ORDERED: ACETAMINOPHEN 325 MG TAB PO PRN (13:00)
[2017-01-03] MEDS ORDERED: KETOROLAC TROMETHAMINE 30 MG/ML (IVP) VIAL IV PUSH PRN (13:00)
[2017-01-03] MEDS ORDERED: MEPERIDINE HCL 25 MG/ML VIAL IV PUSH PRN (13:00)
[2017-01-03] MEDS ORDERED: CALCIUM CHLORIDE INJ 1 GM in SODIUM CHLORIDE 0.9% INJ 100 ML IV PRN (13:00)
[2017-01-03] MEDS ORDERED: ACETAMINOPHEN 650 MG SUPP RECTAL PRN (13:00)
[2017-01-03] MEDS ORDERED: MAGNESIUM SULFATE INJ 2 GM in SODIUM CHLORIDE 0.9% INJ 100 ML IV PRN ×4 (13:00)
[2017-01-03] MEDS ORDERED: hydrALAZINE HCL 20 MG/ML VIAL IV PUSH PRN (13:00)
[2017-01-03] MEDS ORDERED: CALCIUM CHLORIDE 10% 1 GRAM/10 ML VIAL IV PUSH PRN (13:00)
[2017-01-03] MEDS ORDERED: DOBUTamine PREMIX DRIP 250 ML IV SCH (14:00)
[2017-01-03] MEDS ORDERED: NITROGLYCERIN-D5W 50 MG/250 ML 250 ML IV PRN (14:00)
--- NOTE | 2017-01-03 14:08 | RADRPT ---
EXAM DATE/TIME: 01/03/2017 13:42 [facility] COMPARISON: CHEST PA & LAT, December 28, 2016, 11:27. INDICATIONS : S/p cabg. MEDICAL HISTORY : Congestive heart failure. short of breath. SURGICAL HISTORY : None. ENCOUNTER: Initial ACUITY: 1 day PAIN SCORE: Non-responsive. LOCATION: Bilateral chest FINDINGS: Support apparatus in good position. There is no pneumothorax. Heart is minimally enlarged. Mediast inum is prominent. CONCLUSION: Report of resting good position. Mild prominence the cardiac silhouette.. Boby Dangelo MD FACR on January 03, 2017 at 14:06 Board Certified Radiologist. This report was verified electronically.
[2017-01-03] MEDS ORDERED: DEXMEDETOMIDINE INJ 200 MCG in SODIUM CHLORIDE 0.9% INJ 50 ML IV PRN (14:30)
[2017-01-03] MEDS ORDERED: INSULIN REGULAR (IV INFUSION) 100 UNITS in SODIUM CHLORIDE 0.9% INJ 99 ML IV PRN (15:00)
[2017-01-03] MEDS ORDERED: PHENYLEPHRINE INJ 40 MG in DEXTROSE 5% IN WATE 500 ML INJ 496 ML IV PRN ×2 (15:00)
[2017-01-03] MEDS ORDERED: DOPamine INJ PREMIX 500 ML IV PRN (15:00)
[2017-01-03] MEDS ORDERED: CLEVIDIPINE INJ 50 ML IV PRN (15:00)
[2017-01-03] MEDS: ACETAMINOPHEN 1000 MG/100 ML 100 ML IV SCH ×2 (15:59→21:55)
[2017-01-03] MEDS ORDERED: ceFAZolin 2 GM PREMIX 50 ML IV SCH (16:00)
[2017-01-03] MEDS ORDERED: LISINOPRIL 5 MG TAB PO ONE (16:00)
--- NOTE | 2017-01-03 16:01 | PD.OP ---
cc: Suyapa Boo MD; Rolando Parada MD Operative Report Date of Surgery: Jan 03, 2017 Preoperative Diagnosis: Postoperative Diagnosis: Procedure: 1. Minimally Invasive AVR with a 23 Medtronic Mosaic Tissue Valve 2. Percutaneous Right Femoral Arterial and Venous Cannulation for CPB 3. Perclose Closure of the Femoral Artery x 2 4. Intercostal Nerve Block 5. Rib Fixation Surgeon: Suyapa Boo Collar Sewer(s): Brigitte Hawkins Operation and Findings: PREOPERATIVE DIAGNOSIS: 1. Severe Aortic Valve Stenosis 2. Moderate Aortic insufficiency 3. Severe Left Ventricular Dysfunction (EF 30%) POSTOPERATIVE DIAGNOSIS: Same PROCEDURE: 1. Minimally Invasive AVR with a 23 Medtronic Mosaic Tissue Valve 2. Percutaneous Right Femoral Arterial and Venous Cannulation for CPB 3. Perclose Closure of the Femoral Artery x 2 4. Intercostal Nerve Block 5. Rib Fixation ANESTHESIA: DIONTE Valenzuela MD SPIN TABLE OPERATOR: OLIVIER Woodruff INDICATIONS: This is a 66 yo patient with severe Aortic stenosis presenting for surgical correction of their underlying cardiac pathology. PROCEDURE: Standard monitoring lines and Corbett catheter were placed. General anesthesia was induced. The patient was prepped and draped in a sterile fashion. Using ultrasound guidance, percutaneous wires were placed in the right femoral artery and vein. The patient was heparinized for cardiopulmonary bypass. The left femoral artery was cannulated with a 17 Fr [employer]icus arterial cannula. The left femoral vein was cannulated with a 21 Fr [employer] cannula under KITTY guidance. A 6 cm right anterior thoracotomy was performed and the 3rd rib was shingled. The right internal mammary artery and vein were ligated and divided. An Tk retractor was placed followed by a small chest retractor. The pericardium was opened and a pericardial sling was created using interrupted 0 silk sutures. A small 1 cm incision was made at the 6th intercostal space and an LV vent and pericardial suction were placed through this access port. The LV vent was placed through the Right Superior Pulmonary Vein. The aorta was dissected posteriorly for crossclamp placement. Antegrade Custodiol cardioplegia was employed. 800 mls of antegrade Custodiol cardioplegia was infused directly into the aortic root. Additionally, hand-held coronary cardioplegia cannula was used during the procedure. The patient was placed on cardiopulmonary bypass. An aortic cross-clamp was applied and the heart was arrested using cold blood cardioplegia delivered through a 14F catheter. The aorta was opened above the sinotubular ridge and the aortic valve was exposed. The right and left coronary ostia were directly cannulated and an additional 800 mls (LM) and 400mls (RCA) cardioplegia was administered. On opening the aorta, the valve appeared very heavily calcified with retracted cusps. The valve was resected as well as all annular calcification, sized for a 23 mm Mosaic tissue valve which was placed with 2-0 pledgeted Tycron valve sutures. The valve seated well. The aorta was closed with two layers of running 4-0 Prolene suture, the first in a horizontal mattress fashion and the second layer of simple running. The patient systemically rewarmed. The heart was vigorously deaired with a clamp on. Ventricular pacing wire was placed. The clamp was removed, deairing continued. Upon achieving normothermia and intrinsic cardiac activity, the patient was weaned from cardiopulmonary bypass. Strict hemostasis was assured and Protamine administered. Decannulation was carried out without incident. The arterial access was closed with Perclose devices x 2. There was no adverse reaction. Intraoperative KITTY following the procedure showed a well-seated aortic valve with no perivalvular leak and preserved ventricular function. A 28 Fr chest tube was positioned in the pericardium and right pleural space and secured with 2-0 silk sutures. The 3rd rib was reapproximated to the sternum using a [id number] Ethibond suture and to the adjacent rib with a 0 Vicryl suture. Intercostal nerve block was preformed at the level of the incision as well as 2 rib spaces above and below using Exparel solution. The fascia and pectoralis were closed with 0 Vicryl. The subcutaneous tissue was closed using a running 3-0 Monocryl suture. The skin was closed with 4-0 Monocryl. Sterile dressings were placed. At the end of the operation, all sponge, instruments, and needle counts were correct. The patient was transferred to the CVICU in stable condition. Suyapa Boo MD Jan 03, 2017 16:01
[2017-01-03] MEDS: RESP: ALBUTEROL 2.5 MG/IPRATROPIUM 0.5 MG NEB (SCH) NEB ×2 (16:05→21:15)
[2017-01-03] MEDS: ACETAMINOPHEN/HYDROcodone 325 MG/5 MG TAB PO PRN (18:25)
[2017-01-03] MEDS: ceFAZolin 2 GM PREMIX 50 ML IV SCH (18:26)
[2017-01-03] MEDS ORDERED: SODIUM CHLORIDE 0.9% FLUSH 10 ML FLUSH IV FLUSH SCH (21:00)
[2017-01-03] MEDS: AMIODARONE 200 MG TAB PO SCH (21:55)
[2017-01-04] VITALS (16 sets, daily range): BP systolic 93–125; BP diastolic 35–56; PULSE 51–64; RESP 16–22; TEMP 97.4–98.3; O2SAT 94–98
[2017-01-04] MEDS: ceFAZolin 2 GM PREMIX 50 ML IV SCH ×3 (02:19→18:00)
[2017-01-04] MEDS: ACETAMINOPHEN 1000 MG/100 ML 100 ML IV SCH ×2 (02:19→09:09)
[2017-01-04] MEDS: RESP: ALBUTEROL 2.5 MG/IPRATROPIUM 0.5 MG NEB (SCH) NEB ×6 (04:11→21:27)
[2017-01-04 04:29] LABS: HEMATOCRIT 30.2 % (35.0-46.0); MEAN CELL VOLUME 91.5 FL (80.0-100.0); MEAN CORPUSCULAR HEMOGLOBIN 30.7 PG (27.0-34.0); MEAN CORPUSCULAR HGB CONC 33.6 % (32.0-36.0); PLATELET COUNT 188 TH/MM3 (150-450); RED CELL DISTRIBUTION WIDTH 13.2 % (11.6-17.2); REVIEW FLAG FINAL
[2017-01-04 04:50] LABS: BICARBONATE 26.5 MEQ/L (21.0-32.0); MAGNESIUM 2.4 MG/DL (1.5-2.5); POTASSIUM 3.7 MEQ/L (3.5-5.1)
--- NOTE | 2017-01-04 05:00 | RADRPT ---
EXAM DATE/TIME: 01/04/2017 03:40 [facility] COMPARISON: CHEST SINGLE AP, January 03, 2017, 13:42. INDICATIONS : Status post CABG. MEDICAL HISTORY : Congestive heart failure. SURGICAL HISTORY : CABG. ENCOUNTER: Subsequent ACUITY: 2 days PAIN SCORE: Non-responsive. LOCATION: Bilateral chest FINDINGS: A single view of the chest demonstrates the endotracheal tube and nasogastric have been removed. Medi astinal drain remains. There some minimal consolidation remaining in the right lower lobe. Left lung is relatively clear. Left subclavian dual-lumen catheter. CONCLUSION: Minimal consolidation in the right lower lobe. Mediastinal drain remains. Tacho Edmondson MD on January 04, 2017 at 4:56 Board Certified Radiologist. This report was verified electronically.
[2017-01-04] MEDS: PANTOPRAZOLE SOD 40 MG DELAYED RELEASE TAB PO SCH (06:32)
[2017-01-04] MEDS ORDERED: LISINOPRIL 5 MG TAB PO SCH (09:00)
[2017-01-04] MEDS: CLOPIDOGREL 75 MG TAB PO SCH (09:08)
[2017-01-04] MEDS: ASPIRIN 81 MG CHEW TAB PO SCH (09:08)
[2017-01-04] MEDS: AMIODARONE 200 MG TAB PO SCH (09:08)
[2017-01-04] MEDS ORDERED: GLUCAGON 1 MG/ML VIAL OTHER PRN (10:00)
[2017-01-04] MEDS ORDERED: BISACODYL 10 MG SUPP RECTAL PRN (10:00)
[2017-01-04] MEDS: MAGNESIUM HYDROXIDE SUSP 30 ML CUP PO SCH (10:00)
[2017-01-04] MEDS ORDERED: DEXTROSE 50% IN WATER 50 ML VIAL(D50) IV PUSH PRN (10:00)
[2017-01-04] MEDS: INSULIN ASPART SUPPLEMENTAL SCALE SQ SCH ×4 (10:00→21:51)
[2017-01-04] MEDS ORDERED: SOD PHOSPHATE/SOD BIPHOSPHATE (ADULT) ENEMA 133ML RECTAL PRN (10:00)
--- NOTE | 2017-01-04 11:17 | HHI.PR ---
Subjective Remarks Called to evaluate patient for possible "Code Blue" event. Due to the acuity of the event, limited history is available. briefly, this is a 66yF with history of aortic stenosis now POD 1 s/p bioprosthetic AVR. She was on pathway and up ambulating with physical therapy approximately 5 minutes prior to the event. she was sitting in a chair when she became acutely unresponsive and hypotensive with bp 70s/30s. a "Code Blue" was called due to her unresponsiveness. I arrived within 60 seconds of the call. When I arrived, the patient was responding and answering questions, felt fatigued. denied chest pain or SOB. endorsed feeling light-headed. She was immediately moved back into bed and lay flat. repeat BP was 110s/50s. 250cc crystalloid bolus was initiated. EKG at this time demonstrates sinus rhythm with inferior ST depressions which upon further review were present pre-operatively. Dr. Boo is at bedside. I performed bedside critical care echocardiogram which demonstrates grossly normal LV function without regional wall motion abnormalities. normal RV function. no pericardial effusion. underfilled left ventricle visually in parasternal short axis. review of telemetry, she was sinus yamilka in the 50s to NSR in the 70s throughout the event. ROS otherwise negative except where documented, though limited by the acute event and clinical condition. PMHx: h/o aortic stenosis s/p AVR. PSHx: POD 1 s/p tAVR. remainder of past history unobtainable due to clinical condition. On exam, edlerly patient lyign in bed. NSR 70s. equal chest rise. subxyphoid chest tubes with minimal output. patient follows commands, without weakness or sensory changes. no focal deficits. no groin hematoma noted. extremities warm and well perfused. no edema. distal pulses palpable. Assessment: 66yF POD 1 s/p bioprosthetic/tissue AVR with syncopal episode. Given echo findings, likely relative hypovolemia in the setting of known LVH and recent AVR. agree with fluid bolus. initially had transfer to step-down unit. will cancel transfer order and remain in CVICU for close monitoring. I have conveyed these findings to Dr. Boo who agrees with the plan. Active Problems: Syncope Hypotension POD 1 s/p bioprosthetic AVR Acute intravascular hypovolemia Anemia secondary to acute blood loss Recommendations: - remain in CVICU - gentle ivf hydration. - close monitoring - frequent neuro checks - hold any diuresis today. - hold beta blockade today - telemetry - does not meet transfusion triggers at this time Critical Care medicine will continue to follow patient while in the CVICU. Critical care time: 30 minutes. this time includes time I spent in active evaluation and management of the acute change in hemodynamics, discussions with Dr. Boo, stabilization of the patient's hemodynamics, and documentation in the medical record. Objective Vital Signs Date Time Temp Pulse Resp B/P (MAP) Pulse Ox O2 Delivery O2 Flow Rate FiO2 01/04/17 08:00 64 01/04/17 08:00 97 Nasal Cannula 2.00 01/04/17 07:00 98.0 64 18 96/56 (69) 98/45 (62) 01/04/17 04:12 96 Nasal Cannula 2.00 01/04/17 04:00 51 01/04/17 04:00 98 Nasal Cannula 2.00 01/04/17 03:31 20 01/04/17 03:00 97.6 51 18 103/47 (65) 98 106/45 (65) 01/04/17 02:50 18 01/04/17 00:05 99 Nasal Cannula 3.00 01/04/17 00:00 52 01/03/17 23:00 97.9 53 18 113/53 (73) 99 108/46 (66) 01/03/17 21:16 99 Nasal Cannula 3.00 01/03/17 20:00 54 01/03/17 20:00 99 Nasal Cannula 3.00 01/03/17 19:30 18 01/03/17 19:00 97.8 54 18 126/66 (86) 99 123/51 (75) 01/03/17 17:29 18 01/03/17 16:00 98 Nasal Cannula 4.00 01/03/17 16:00 55 01/03/17 16:00 98 Nasal Cannula 5.00 01/03/17 15:07 97 Mechanical Ventilator 01/03/17 15:07 94 Nasal Cannula 4 01/03/17 15:00 98.4 59 14 160/64 (96) 98 01/03/17 14:15 94 50 01/03/17 14:00 98.2 53 14 153/65 (94) 95 01/03/17 13:30 91 50 01/03/17 13:30 50 01/03/17 13:30 53 01/03/17 13:30 97.8 54 10 121/58 (79) 93 117/53 (74) I/O 01/03/17 01/03/17 01/03/17 01/04/17 01/04/17 01/04/17 07:00 15:00 23:00 07:00 15:00 23:00 Intake Total 2825 ml 1087 ml 1200 ml Output Total 1900 ml 1020 ml 790 ml Balance 925 ml 67 ml 410 ml Intake Oral 240 ml 1050 ml IV Total 847 ml 150 ml Autotransfusion 525 ml Other 2300 ml Output Urine Total 1900 ml 860 ml 600 ml Chest Tube Drainage Total 160 ml 190 ml # Bowel Movements 0 0 Result Diagram: 01/04/17 0415 01/04/17 0415 Tex Contreras MD Jan 04, 2017 11:17
[2017-01-04] MEDS: ONDANSETRON HCL 4 MG/2 ML VIAL IV PUSH PRN ×2 (11:24→17:18)
[2017-01-04] MEDS ORDERED: DOPamine INJ PREMIX 500 ML ONE (12:29)
[2017-01-04] MEDS ORDERED: TERBUTALINE INJ 1 MG/ML AMP SQ PRN (13:30)
[2017-01-04] MEDS ORDERED: DOPamine 800 MG/D5W PREMIX 500 ML IV PRN (13:30)
--- NOTE | 2017-01-04 16:06 | PD.CAR.PN ---
CVT Progress Note Subjective/Hospital Course: A 66-year-old patient of Dr. Jose C Jerry, Dr. Parada who apparently has been having a persistent cough off and on for years, had some bronchitis about six weeks ago with some fever and chills, some recent fatigue. She went for chest x-ray where they found that she had an enlarged heart. She was therefore sent to Dr. Parada for a cardiac workup. He did an echocardiogram that showed severe aortic stenosis with a gradient of 116 mmHg, valve area 0.4, PA pressure of 39, moderate mitral regurgitation, moderate tricuspid regurgitation. EF of 30%. The patient came in for elective heart catheterization which showed no nonobstructive coronary disease. EF of 35%. Pulmonary capillary wedge pressure of 8. PA pressure 28/13, mean of 20. RV pressure 28. Right atrial pressure of 2. We were consulted for evaluation for aortic valve replacement. PAST MEDICAL HISTORY recently diagnosed with a severe aortic stenosis, congestive heart failure with moderate to severe LV dysfunction, EF of 30-35%, cardiomyopathy. 01/03 surgery 1. Minimally Invasive AVR with a 23 Medtronic Mosaic Tissue Valve 2. Percutaneous Right Femoral Arterial and Venous Cannulation for CPB 3. Perclose Closure of the Femoral Artery x 2 4. Intercostal Nerve Block 5. Rib Fixation crystalloid 2300cc, cell saver 525cc/ urine 1900cc "Code Blue" event called . Due to the acuity of the event, limited history is available. she was up ambulating with physical therapy approximately 5 minutes prior to the event. she was sitting in a chair when she became acutely unresponsive and hypotensive with bp 70s/30s. a "Code Blue" was called due to her unresponsiveness. When I arrived, the patient was responding and answering questions, felt fatigued. denied chest pain or SOB. endorsed feeling light-headed. She was immediately moved back into bed and lay flat. repeat BP was 110s/50s. 250cc crystalloid bolus was initiated. EKG at this time demonstrates sinus rhythm with inferior ST depressions which upon further review were present pre-operatively. Dr. Boo is at bedside. Dr Contreras performed bedside critical care echocardiogram which demonstrates grossly normal LV function without regional wall motion abnormalities. normal RV function. no pericardial effusion. underfilled left ventricle visually in parasternal short axis. review of telemetry, she was sinus yamilka in the 50s to NSR in the 70s throughout the event. + nausea and vomiting pt responded to fluid resuscitation Objective: Vital Signs Date Time Temp Pulse Resp B/P (MAP) Pulse Ox O2 Delivery O2 Flow Rate FiO2 01/04/17 15:00 97.7 52 16 108/50 (69) 96 01/04/17 12:00 56 01/04/17 12:00 94 Nasal Cannula 3.00 01/04/17 12:00 50 01/04/17 11:24 16 01/04/17 11:00 97.4 51 18 93/35 (54) 94 Arterial Line 01/04/17 08:00 64 01/04/17 08:00 97 Nasal Cannula 2.00 01/04/17 07:00 98.0 64 18 96/56 (69) 98/45 (62) 01/04/17 04:12 96 Nasal Cannula 2.00 01/04/17 04:00 51 01/04/17 04:00 98 Nasal Cannula 2.00 01/04/17 03:31 20 01/04/17 03:00 97.6 51 18 103/47 (65) 98 106/45 (65) 01/04/17 00:05 99 Nasal Cannula 3.00 01/04/17 00:00 52 01/03/17 23:00 97.9 53 18 113/53 (73) 99 108/46 (66) 01/03/17 21:16 99 Nasal Cannula 3.00 01/03/17 20:00 54 01/03/17 20:00 99 Nasal Cannula 3.00 01/03/17 19:30 18 01/03/17 19:00 97.8 54 18 126/66 (86) 99 123/51 (75) 01/03/17 17:29 18 Labs: Laboratory Tests Test 01/04/17 04:15 White Blood Count 16.0 TH/MM3 (4.0-11.0) Red Blood Count 3.30 MIL/MM3 (4.00-5.30) Hemoglobin 10.1 GM/DL (11.6-15.3) Hematocrit 30.2 % (35.0-46.0) Mean Corpuscular Volume 91.5 FL (80.0-100.0) Mean Corpuscular Hemoglobin 30.7 PG (27.0-34.0) Mean Corpuscular Hemoglobin Concent 33.6 % (32.0-36.0) Red Cell Distribution Width 13.2 % (11.6-17.2) Platelet Count 188 TH/MM3 (150-450) Mean Platelet Volume 8.5 FL (7.0-11.0) Blood Urea Nitrogen 18 MG/DL (7-18) Creatinine 0.67 MG/DL (0.50-1.00) Random Glucose 102 MG/DL (74-106) Calcium Level 8.0 MG/DL (8.5-10.1) Magnesium Level 2.4 MG/DL (1.5-2.5) Sodium Level 138 MEQ/L (136-145) Potassium Level 3.7 MEQ/L (3.5-5.1) Chloride Level 102 MEQ/L (98-107) Carbon Dioxide Level 26.5 MEQ/L (21.0-32.0) Anion Gap 10 MEQ/L (5-15) Estimat Glomerular Filtration Rate 88 ML/MIN (>89) Result Diagram: 01/04/17 0415 01/04/17 0415 (1) CHF (congestive heart failure), NYHA class II (2) Cardiomyopathy (3) Severe aortic stenosis (4) S/P AVR (aortic valve replacement) Plan: on ASA, plavix no JEANNETTE or BB f/u labs in am keep in ICU appreciate Francisca Teixeira Jan 04, 2017 16:06
--- NOTE | 2017-01-04 16:26 | EKG ---
Date Performed: 01/04/2017 Time Performed: 04:28:52 PTAGE: 66 years EKG: Sinus bradycardia Left ventricular hypertrophy Extensive ST-T changes may be due to hypertr ophy and/or ischemia Abnormal ECG PREVIOUS TRACING : 12/28/2016 10.05 Compared to prior tracing no significant change DOCTOR: Araceli Siddiqui Interpretating Date/Time 01/04/2017 16:25:46
[2017-01-04] MEDS: ACETAMINOPHEN 1000 MG/100 ML 100 ML IV PRN (17:17)
[2017-01-04] MEDS: KETOROLAC TROMETHAMINE 30 MG/ML (IVP) VIAL IV PUSH PRN (17:18)
[2017-01-04] MEDS: METOCLOPRAMIDE HCL 10 MG/2 ML VIAL IV SCH ×2 (17:19→21:51)
[2017-01-04] MEDS: DOCUSATE SODIUM 100 MG CAP PO SCH (21:51)
[2017-01-04] MEDS: SENNOSIDES 8.6 MG TAB PO SCH (21:51)
[2017-01-05] VITALS (9 sets, daily range): BP systolic 115–134; BP diastolic 52–72; PULSE 51–76; RESP 14–20; TEMP 97.7–98.7; O2SAT 94–98
[2017-01-05] MEDS: ACETAMINOPHEN 1000 MG/100 ML 100 ML IV PRN (00:37)
[2017-01-05] MEDS: ceFAZolin 2 GM PREMIX 50 ML IV SCH (01:09)
[2017-01-05] MEDS: INSULIN ASPART SUPPLEMENTAL SCALE SQ SCH ×5 (01:54→21:00)
[2017-01-05] MEDS: KETOROLAC TROMETHAMINE 30 MG/ML (IVP) VIAL IV PUSH PRN (01:58)
[2017-01-05 06:08] LABS: AUTOMATED NEUTROPHIL # 9.3 TH/MM3 (1.8-7.7); BASOPHIL # 0.1 TH/MM3 (0-0.2); BASOPHIL % 0.5 % (0.0-2.0); EOSINOPHIL # 0.4 TH/MM3 (0-0.4); EOSINOPHIL % 3.1 % (0.0-4.0); HEMATOCRIT 27.1 % (35.0-46.0); HEMO FLAGS DIFF FINAL; LYMPH % 11.6 % (9.0-44.0); LYMPHOCYTE # 1.4 TH/MM3 (1.0-4.8); MEAN CELL VOLUME 91.1 FL (80.0-100.0); MEAN CORPUSCULAR HEMOGLOBIN 30.9 PG (27.0-34.0); MEAN CORPUSCULAR HGB CONC 33.9 % (32.0-36.0); MONO % 9.2 % (0.0-8.0); NEUT % 75.6 % (16.0-70.0); PLATELET COUNT 215 TH/MM3 (150-450); RED BLOOD COUNT 2.97 MIL/MM3 (4.00-5.30); RED CELL DISTRIBUTION WIDTH 13.4 % (11.6-17.2); WHITE BLOOD COUNT 12.3 TH/MM3 (4.0-11.0)
[2017-01-05 06:38] LABS: BICARBONATE 30.3 MEQ/L (21.0-32.0); MAGNESIUM 2.3 MG/DL (1.5-2.5); POTASSIUM 3.7 MEQ/L (3.5-5.1)
[2017-01-05] MEDS: METOCLOPRAMIDE HCL 10 MG/2 ML VIAL IV SCH (07:12)
[2017-01-05] MEDS: PANTOPRAZOLE SOD 40 MG DELAYED RELEASE TAB PO SCH (07:12)
--- NOTE | 2017-01-05 08:29 | HHI.CCPN ---
Subjective Remarks/Hospital Course Hospital Course: Called to evaluate patient for possible "Code Blue" event. Due to the acuity of the event, limited history is available. briefly, this is a 66yF with history of aortic stenosis now POD 1 s/p bioprosthetic AVR. She was on pathway and up ambulating with physical therapy approximately 5 minutes prior to the event. she was sitting in a chair when she became acutely unresponsive and hypotensive with bp 70s/30s. a "Code Blue" was called due to her unresponsiveness. I arrived within 60 seconds of the call. When I arrived, the patient was responding and answering questions, felt fatigued. denied chest pain or SOB. endorsed feeling light-headed. She was immediately moved back into bed and lay flat. repeat BP was 110s/50s. 250cc crystalloid bolus was initiated. EKG at this time demonstrates sinus rhythm with inferior ST depressions which upon further review were present pre-operatively. Dr. Boo is at bedside. I performed bedside critical care echocardiogram which demonstrates grossly normal LV function without regional wall motion abnormalities. normal RV function. no pericardial effusion. underfilled left ventricle visually in parasternal short axis. review of telemetry, she was sinus yamilka in the 50s to NSR in the 70s throughout the event. Subjective: 01/05: clinically patient feels better. no more nausea. no more episodes of syncope. adequate uop. HR persistently low, especially while sleeping, down to the 40s. intermittently back-up V-paced by epicardial wires. dopamine at 2 mcg/ kg/min. Objective Vital Signs Date Time Temp Pulse Resp B/P (MAP) Pulse Ox O2 Delivery O2 Flow Rate FiO2 01/05/17 04:34 50 01/05/17 04:34 98 Nasal Cannula 2.00 01/05/17 04:00 97.7 20 125/67 (86) 01/03/17 14:15 50 Intake and Output 01/05/17 01/05/17 01/06/17 08:00 16:00 00:00 Intake Total 669 ml Output Total 1080 ml Balance -411 ml Result Diagram: 01/05/1753901/05/17 05 Objective Remarks gen: middle-aged female, lying in bed, no acute distress. heent: perrl. eomi. mmm. neck: IJ central line, site c/d/i. no jvd. trachea midline. chest: unlabored. nc o2. equal chest rise. cv: back-up V-paced VVI @ 50, intermittently paced. brief pause of pacer demonstrates underlying sinus bradycardia with [place] rate of 48. chest tubes exit subxiphoid with minimal serosanguinous output. abd: soft, nt, nd. no guarding. extr: some new early edema, trace-to-1+ LEs. distal pulses 2+. neuro: RASS 0. CAM -. GCS 15. follows commands. A/P Assessment and Plan Assessment: 66yF POD 2 s/p tissue AVR complicated by post-operative syncope and symptomatic bradycardia. Clinically stable. would keep dopamine today and keep back-up pacing availability. If clinically euvolemic, could start early diuresis given some findings of volume overload, and would not want to worsen cardiac conduction pathways with myocardial edema. However, recently volume deplete yesterday, so will cautiously diurese. check CXR to confirm signs of early volume overload. drop back-up rate to VVI @ 45. Otherwise continue mobilization on pathway. POD 2 s/p tissue AVR - chest tube management per CT surgery - anticoagulation per CT surgery symptomatic bradycardia - continue dopamine - continue back-up VVI pacing - if persists through the weekend, would likely need EP consult next week, but likely to resolve spontaneously as conduction pathways recover from perioperative edema. Syncope - likely combination of symptomatic bradycardia and intravascular hypovolemia yesterday - clinically improved without additional episodes of syncope Nausea - resolved. - continue prn zofran - likely secondary to her syncope and symptomatic bradycardia - continue heart healthy diet as tolerated. Intravascular volume overload - obtain cxr to confirm - early diuresis - careful monitoring Discussed with CT surgery. CCM will continue to follow as long as patient remains in the CVICU. Tex Contreras MD Jan 05, 2017 08:29
[2017-01-05] MEDS: DOCUSATE SODIUM 100 MG CAP PO SCH ×2 (09:00→21:35)
[2017-01-05] MEDS: MAGNESIUM HYDROXIDE SUSP 30 ML CUP PO SCH (09:25)
[2017-01-05] MEDS: POLYETHYLENE GLYCOL 17 GM PKG PO SCH (09:25)
[2017-01-05] MEDS: CLOPIDOGREL 75 MG TAB PO SCH (09:26)
[2017-01-05] MEDS: MULTIVITAMINS/MINERALS THERAPEUTIC TAB PO SCH (09:26)
[2017-01-05] MEDS: ASPIRIN 81 MG CHEW TAB PO SCH (09:26)
--- NOTE | 2017-01-05 09:31 | RADRPT ---
EXAM DATE/TIME: 01/05/2017 08:55 [facility] COMPARISON: CHEST SINGLE AP, January 04, 2017, 3:40. INDICATIONS : Short of breath. MEDICAL HISTORY : Congestive heart failure. Shortness of breath. SURGICAL HISTORY : Aortic valve replacement. ENCOUNTER: Subsequent ACUITY: 2 days PAIN SCORE: 0/10 LOCATION: chest FINDINGS: A single view of the chest demonstrates elevation right hemidiaphragm. Post surgical changes on the r ight. Minimal right basilar density. Left subclavian line unchanged. No pneumothorax. Right-sided chaka st CT.. Osseous structures are intact. CONCLUSION: Medical density right lung base, improved from previous study. No pneumothorax. Erasto Emanuel MD on January 05, 2017 at 9:29 Board Certified Radiologist. This report was verified electronically.
[2017-01-05] MEDS: RESP: ALBUTEROL 2.5 MG/IPRATROPIUM 0.5 MG NEB (SCH) NEB ×3 (09:56→20:00)
--- NOTE | 2017-01-05 09:56 | PD.CAR.PN ---
CVT Progress Note Subjective/Hospital Course: A 66-year-old patient of Dr. Jose C Jerry, Dr. Parada who apparently has been having a persistent cough off and on for years, had some bronchitis about six weeks ago with some fever and chills, some recent fatigue. She went for chest x-ray where they found that she had an enlarged heart. She was therefore sent to Dr. Parada for a cardiac workup. He did an echocardiogram that showed severe aortic stenosis with a gradient of 116 mmHg, valve area 0.4, PA pressure of 39, moderate mitral regurgitation, moderate tricuspid regurgitation. EF of 30%. The patient came in for elective heart catheterization which showed no nonobstructive coronary disease. EF of 35%. Pulmonary capillary wedge pressure of 8. PA pressure 28/13, mean of 20. RV pressure 28. Right atrial pressure of 2. We were consulted for evaluation for aortic valve replacement. PAST MEDICAL HISTORY recently diagnosed with a severe aortic stenosis, congestive heart failure with moderate to severe LV dysfunction, EF of 30-35%, cardiomyopathy. 01/03 surgery 1. Minimally Invasive AVR with a 23 Medtronic Mosaic Tissue Valve 2. Percutaneous Right Femoral Arterial and Venous Cannulation for CPB 3. Perclose Closure of the Femoral Artery x 2 4. Intercostal Nerve Block 5. Rib Fixation crystalloid 2300cc, cell saver 525cc/ urine 1900cc "Code Blue" event called . Due to the acuity of the event, limited history is available. she was up ambulating with physical therapy approximately 5 minutes prior to the event. she was sitting in a chair when she became acutely unresponsive and hypotensive with bp 70s/30s. a "Code Blue" was called due to her unresponsiveness. When I arrived, the patient was responding and answering questions, felt fatigued. denied chest pain or SOB. endorsed feeling light-headed. She was immediately moved back into bed and lay flat. repeat BP was 110s/50s. 250cc crystalloid bolus was initiated. EKG at this time demonstrates sinus rhythm with inferior ST depressions which upon further review were present pre-operatively. Dr. Boo is at bedside. Dr Contreras performed bedside critical care echocardiogram which demonstrates grossly normal LV function without regional wall motion abnormalities. normal RV function. no pericardial effusion. underfilled left ventricle visually in parasternal short axis. review of telemetry, she was sinus yamilka in the 50s to NSR in the 70s throughout the event. + nausea and vomiting pt responded to fluid resuscitation 01/05 bedside echo completed by Dr Tinajero yesterday , normal LV and RV function + 4 kg , gentle diuresis , weaning off dopamine gtt SBP 160 no BB no amiodarone , back up pacer set to 40 chest tube removed today no further nausea , continue reglan for now change to prn possible transfer to step down later today Vwires left in place Objective: GENERAL: SKIN: Warm and dry. dressing D&I right upper chest wall, chest tube in place , no air leak HEAD: Normocephalic. EYES: No scleral icterus. No injection or drainage. NECK: Supple, trachea midline. No JVD or lymphadenopathy. CARDIOVASCULAR: Regular rate and rhythm without , gallops, or rubs. /6 sm RESPIRATORY: Breath sounds equal bilaterally. No accessory muscle use. GASTROINTESTINAL: Abdomen soft, non-tender, nondistended. MUSCULOSKELETAL: No cyanosis, or edema. BACK: Nontender without obvious deformity. No CVA tenderness. Vital Signs Date Time Temp Pulse Resp B/P (MAP) Pulse Ox O2 Delivery O2 Flow Rate FiO2 01/05/17 04:34 50 01/05/17 04:34 98 Nasal Cannula 2.00 01/05/17 04:00 51 01/05/17 04:00 97.7 51 20 125/67 (86) 96 01/05/17 03:30 97 Nasal Cannula 2.00 01/05/17 03:30 50 01/05/17 01:15 20 01/05/17 00:06 60 01/05/17 00:03 98 Nasal Cannula 2.00 01/05/17 00:00 98.3 55 20 120/52 (74) 98 01/04/17 23:45 54 01/04/17 23:00 98 Nasal Cannula 2.00 01/04/17 21:28 97 Nasal Cannula 2.00 01/04/17 20:00 96 Nasal Cannula 2.00 01/04/17 20:00 98.3 62 22 125/54 (77) 95 01/04/17 20:00 62 01/04/17 19:50 51 01/04/17 19:30 59 01/04/17 18:30 16 01/04/17 16:57 94 Nasal Cannula 2.00 01/04/17 16:21 72 70/37 01/04/17 16:00 96 Nasal Cannula 2.00 01/04/17 16:00 60 01/04/17 16:00 55 01/04/17 15:00 97.7 52 16 108/50 (69) 96 01/04/17 12:00 56 01/04/17 12:00 94 Nasal Cannula 3.00 01/04/17 12:00 50 01/04/17 11:24 16 01/04/17 11:00 97.4 51 18 93/35 (54) 94 Arterial Line Labs: Laboratory Tests Test 01/05/17 05:40 White Blood Count 12.3 TH/MM3 (4.0-11.0) Red Blood Count 2.97 MIL/MM3 (4.00-5.30) Hemoglobin 9.2 GM/DL (11.6-15.3) Hematocrit 27.1 % (35.0-46.0) Mean Corpuscular Volume 91.1 FL (80.0-100.0) Mean Corpuscular Hemoglobin 30.9 PG (27.0-34.0) Mean Corpuscular Hemoglobin Concent 33.9 % (32.0-36.0) Red Cell Distribution Width 13.4 % (11.6-17.2) Platelet Count 215 TH/MM3 (150-450) Mean Platelet Volume 8.5 FL (7.0-11.0) Neutrophils (%) (Auto) 75.6 % (16.0-70.0) Lymphocytes (%) (Auto) 11.6 % (9.0-44.0) Monocytes (%) (Auto) 9.2 % (0.0-8.0) Eosinophils (%) (Auto) 3.1 % (0.0-4.0) Basophils (%) (Auto) 0.5 % (0.0-2.0) Neutrophils # (Auto) 9.3 TH/MM3 (1.8-7.7) Lymphocytes # (Auto) 1.4 TH/MM3 (1.0-4.8) Monocytes # (Auto) 1.1 TH/MM3 (0-0.9) Eosinophils # (Auto) 0.4 TH/MM3 (0-0.4) Basophils # (Auto) 0.1 TH/MM3 (0-0.2) CBC Comment DIFF FINAL Differential Comment Blood Urea Nitrogen 17 MG/DL (7-18) Creatinine 0.76 MG/DL (0.50-1.00) Random Glucose 106 MG/DL (74-106) Calcium Level 8.1 MG/DL (8.5-10.1) Magnesium Level 2.3 MG/DL (1.5-2.5) Sodium Level 141 MEQ/L (136-145) Potassium Level 3.7 MEQ/L (3.5-5.1) Chloride Level 106 MEQ/L (98-107) Carbon Dioxide Level 30.3 MEQ/L (21.0-32.0) Anion Gap 5 MEQ/L (5-15) Estimat Glomerular Filtration Rate 76 ML/MIN (>89) Amylase Level 86 U/L (25-115) Lipase 78 U/L (73-393) Result Diagram: 01/05/1753901/05/17539 Telemetry: NSR (1) CHF (congestive heart failure), NYHA class II Plan: gentle diuresis (2) Cardiomyopathy (3) Severe aortic stenosis (4) S/P AVR (aortic valve replacement) Plan: on ASA, plavix no JEANNETTE or BB f/u labs in am HGB stable back up pacer at 40 wean off dopamine eval for transfer to stepdown today dc chest tube Francisca Guzman Jan 05, 2017 09:56
[2017-01-05] MEDS ORDERED: POTASSIUM CHLORIDE 25 MEQ EFFERVESCENT TAB PO ONE (10:15)
[2017-01-05] MEDS ORDERED: METOCLOPRAMIDE HCL 10 MG/2 ML VIAL IV PRN (11:00)
--- NOTE | 2017-01-05 11:37 | HHI.FF ---
Face to Face Verification Diagnosis: (1) Cardiomyopathy (2) Severe aortic stenosis (3) S/P AVR (aortic valve replacement) (4) CHF (congestive heart failure), NYHA class II Physical Therapy Order: Evaluate and Treat Home Health Nursing Order: Signs/symptoms of disease process Medication education-adverse effect Wound care and dressing changes Nursing assessment with vital signs Instructions: Heart and Vascular Surgery patients *Special attention to sternal dressing Mandatory frequency Assess and evaluation, 4 days in a row The next week 3X week 2 times a week for 4 weeks 1 time a week for 5 weeks Schedule Heart and Vascular patients for full 60 day certification period Initial visit Review Open Heart Surgery Discharge Instructions (Sternal precautions, Activity, Elastic hose, Incision care, Driving, Incentive spirometry, Smoking, Cut Off, Work and other) Need Betadine to paint incision Medication reconciliation Importance of follow up care/ check on appointments Make calendar record temperature daily When to call [facility] at Home nurse, review instructions, phone list Incentive Spirometry, demonstration Visit 1- Begin discharge instruction for patient family and/ or caregiver using teach back method- Signs and symptoms of infection Disease characteristics Medicines and side effects Foods and nutrition/ appetite Infection control/ hand washing/ hygiene Visit 2- Continue teaching Discharge instructions- include additional information on smoking cessation , sternal dressing (sternal vac) Visit 3- Continue teaching- Cough and deep breathing, incision monitoring. Choose my plate Visit 4- Continue teaching- Discuss limitations Discuss how they are feeling Discuss progress toward goals Remaining visits- continue teaching and monitoring Incentive spirometry Q1 hr x 10, while awake, also use acapella device hourly whole awake chest wall Precautions: NO pushing or pulling, ( pt must use chest pillow to support chest with all activities and with coughing Daily incision care: ok to shower daily, no tub bath. Wash all incisions with liquid dial soap, clean wash cloth to each site, rinse and pat dry. Observe for any signs of infection, such as drainage which is dark yellow, mora, green or foul smelling. Immediately report to the surgeon any drainage from the chest incision, or legs, and for any abnormal drainage from the chest tube sites. Notify surgeon if any temp >101.5 degrees F. When specialty dressing removed/ or if you do not have one, continue to shower daily as above, then rinse and pat incision dry and paint with betadine daily x 5 days. Allow steri strips to fall off if you have any. Avoid lotions, creams, salves, oils, etc. for the first month F/U appointment: as per [place] instructions: PCP in 2 weeks, CV surgeon 2 weeks, [employer] 3-4 weeks For any questions regarding incisions/ dressing / meds / post op care or above Symptoms, Sunday 8am-5pm Heart & Vascular Surgery Office ( Dr. Boo & Dr. Ramirez), After Hours / Nights (5pm -8am) Weekends and Holidays Please call [facility] ([facility]) Charge Nurse I have seen patient Amara Reeder on 01/05/17. My clinical findings support the need for the requested home health care services because: Deconditioned w/ increased weakness I certify that my clinical findings support that this patient is homebound because: Post-op weakness Francisca Guzman Jan 05, 2017 11:37
[2017-01-05] MEDS ORDERED: FUROSEMIDE 20 MG/2 ML VIAL IV PUSH ONE (12:00)
[2017-01-05] MEDS ORDERED: POTASSIUM CHLORIDE 20 MEQ CONTROLLED RELEASE TAB PO ONE (12:00)
[2017-01-05] MEDS: SENNOSIDES 8.6 MG TAB PO SCH (21:00)
[2017-01-05] MEDS: ACETAMINOPHEN/HYDROcodone 325 MG/5 MG TAB PO PRN (21:35)
[2017-01-06] VITALS (17 sets, daily range): BP systolic 112–136; BP diastolic 57–73; PULSE 59–98; RESP 16–20; TEMP 98.3–98.7; O2SAT 91–98
[2017-01-06] MEDS: ACETAMINOPHEN/HYDROcodone 325 MG/5 MG TAB PO PRN ×4 (04:23→21:20)
[2017-01-06 04:57] LABS: HEMATOCRIT 25.3 % (35.0-46.0); MEAN CELL VOLUME 91.9 FL (80.0-100.0); MEAN CORPUSCULAR HEMOGLOBIN 31.1 PG (27.0-34.0); MEAN CORPUSCULAR HGB CONC 33.8 % (32.0-36.0); PLATELET COUNT 215 TH/MM3 (150-450); RED BLOOD COUNT 2.75 MIL/MM3 (4.00-5.30); RED CELL DISTRIBUTION WIDTH 13.1 % (11.6-17.2); REVIEW FLAG FINAL; WHITE BLOOD COUNT 10.4 TH/MM3 (4.0-11.0)
[2017-01-06 05:18] LABS: BICARBONATE 32.1 MEQ/L (21.0-32.0); MAGNESIUM 2.2 MG/DL (1.5-2.5); POTASSIUM 4.1 MEQ/L (3.5-5.1)
[2017-01-06] MEDS: PANTOPRAZOLE SOD 40 MG DELAYED RELEASE TAB PO SCH (06:00)
--- NOTE | 2017-01-06 06:15 | RADRPT ---
EXAM DATE/TIME: 01/06/2017 04:08 [facility] COMPARISON: CHEST SINGLE AP, January 04, 2017, 3:40. CHEST SINGLE AP, January 05, 2017, 8:55. INDICATIONS : Evaluate for pnuemothorax, post chest tube removal MEDICAL HISTORY : Congestive heart failure. SURGICAL HISTORY : Aortic valve replacement ENCOUNTER: Subsequent ACUITY: 3 days PAIN SCORE: 6/10 LOCATION: Bilateral chest FINDINGS: Left subclavian catheter tip projects over the mid superior vena cava. No evidence of pneumothorax. Interval development of consolidation in the medial right lower lung with loss of delineation of the medial hemidiaphragm and right heart border. Patchy infiltrates in the retrocardiac region. CONCLUSION: 1. No evidence of pneumothorax. 2. New prominent area of consolidation in the medial right lower lung. Ken Denise MD on January 06, 2017 at 6:12 Board Certified Radiologist. This report was verified electronically.
[2017-01-06] MEDS: RESP: ALBUTEROL 2.5 MG/IPRATROPIUM 0.5 MG NEB (SCH) NEB (07:22)
[2017-01-06] MEDS: INSULIN ASPART SUPPLEMENTAL SCALE SQ SCH ×4 (08:00→21:00)
[2017-01-06] MEDS: POLYETHYLENE GLYCOL 17 GM PKG PO SCH (09:00)
[2017-01-06] MEDS: MAGNESIUM HYDROXIDE SUSP 30 ML CUP PO SCH (09:00)
[2017-01-06] MEDS: ASPIRIN 81 MG CHEW TAB PO SCH (09:00)
[2017-01-06] MEDS: CLOPIDOGREL 75 MG TAB PO SCH (09:00)
[2017-01-06] MEDS: DOCUSATE SODIUM 100 MG CAP PO SCH ×2 (09:00→21:20)
[2017-01-06] MEDS: MULTIVITAMINS/MINERALS THERAPEUTIC TAB PO SCH (09:00)
--- NOTE | 2017-01-06 10:51 | PD.CAR.PN ---
CVT Progress Note CVT: POD #: 3 Subjective/Hospital Course: A 66-year-old patient of Dr. Jose C Jerry, Dr. Parada who apparently has been having a persistent cough off and on for years, had some bronchitis about six weeks ago with some fever and chills, some recent fatigue. She went for chest x-ray where they found that she had an enlarged heart. She was therefore sent to Dr. Parada for a cardiac workup. He did an echocardiogram that showed severe aortic stenosis with a gradient of 116 mmHg, valve area 0.4, PA pressure of 39, moderate mitral regurgitation, moderate tricuspid regurgitation. EF of 30%. The patient came in for elective heart catheterization which showed no nonobstructive coronary disease. EF of 35%. Pulmonary capillary wedge pressure of 8. PA pressure 28/13, mean of 20. RV pressure 28. Right atrial pressure of 2. We were consulted for evaluation for aortic valve replacement. PAST MEDICAL HISTORY recently diagnosed with a severe aortic stenosis, congestive heart failure with moderate to severe LV dysfunction, EF of 30-35%, cardiomyopathy. 01/03 surgery 1. Minimally Invasive AVR with a 23 Medtronic Mosaic Tissue Valve 2. Percutaneous Right Femoral Arterial and Venous Cannulation for CPB 3. Perclose Closure of the Femoral Artery x 2 4. Intercostal Nerve Block 5. Rib Fixation crystalloid 2300cc, cell saver 525cc/ urine 1900cc "Code Blue" event called . Due to the acuity of the event, limited history is available. she was up ambulating with physical therapy approximately 5 minutes prior to the event. she was sitting in a chair when she became acutely unresponsive and hypotensive with bp 70s/30s. a "Code Blue" was called due to her unresponsiveness. When I arrived, the patient was responding and answering questions, felt fatigued. denied chest pain or SOB. endorsed feeling light-headed. She was immediately moved back into bed and lay flat. repeat BP was 110s/50s. 250cc crystalloid bolus was initiated. EKG at this time demonstrates sinus rhythm with inferior ST depressions which upon further review were present pre-operatively. Dr. Boo is at bedside. Dr Contreras performed bedside critical care echocardiogram which demonstrates grossly normal LV function without regional wall motion abnormalities. normal RV function. no pericardial effusion. underfilled left ventricle visually in parasternal short axis. review of telemetry, she was sinus [place]amilka in the 50s to NSR in the 70s throughout the event. + nausea and vomiting pt responded to fluid resuscitation 01/05 bedside echo completed by Dr Tinajero yesterday , normal LV and RV function + 4 kg , gentle diuresis , weaning off dopamine gtt SBP 160 no BB no amiodarone , back up pacer set to 40 chest tube removed today no further nausea , continue reglan for now change to prn possible transfer to step down later today Vwires left in place 01/06/17 No complaints today. Doing well. Objective: Vital Signs Date Time Temp Pulse Resp B/P (MAP) Pulse Ox O2 Delivery O2 Flow Rate FiO2 01/06/17 10:34 18 01/06/17 07:23 97 Nasal Cannula 2.00 01/06/17 07:00 66 01/06/17 07:00 66 01/06/17 07:00 98.7 60 16 117/60 (79) 92 01/06/17 07:00 92 Nasal Cannula 2.00 01/06/17 03:00 59 01/06/17 03:00 95 Nasal Cannula 2.00 01/06/17 03:00 59 01/06/17 03:00 98.4 98 20 112/57 (75) 95 01/05/17 23:00 98.6 76 20 115/52 (73) 94 01/05/17 23:00 76 01/05/17 23:00 75 01/05/17 23:00 95 Nasal Cannula 1.00 01/05/17 20:30 96 Nasal Cannula 2.00 01/05/17 19:00 95 Nasal Cannula 1.00 01/05/17 19:00 71 01/05/17 19:00 71 01/05/17 19:00 98.7 71 20 119/64 (82) 95 01/05/17 16:00 77 01/05/17 16:00 95 Nasal Cannula 1.00 01/05/17 15:00 98.7 74 14 125/72 (89) 95 01/05/17 15:00 74 01/05/17 12:00 98 Nasal Cannula 2.00 01/05/17 12:00 69 01/05/17 11:00 97.9 62 14 120/60 (80) 98 01/05/17 11:00 62 Labs: Laboratory Tests Test 01/06/17 04:10 White Blood Count 10.4 TH/MM3 (4.0-11.0) Red Blood Count 2.75 MIL/MM3 (4.00-5.30) Hemoglobin 8.6 GM/DL (11.6-15.3) Hematocrit 25.3 % (35.0-46.0) Mean Corpuscular Volume 91.9 FL (80.0-100.0) Mean Corpuscular Hemoglobin 31.1 PG (27.0-34.0) Mean Corpuscular Hemoglobin Concent 33.8 % (32.0-36.0) Red Cell Distribution Width 13.1 % (11.6-17.2) Platelet Count 215 TH/MM3 (150-450) Mean Platelet Volume 8.0 FL (7.0-11.0) Blood Urea Nitrogen 13 MG/DL (7-18) Creatinine 0.56 MG/DL (0.50-1.00) Random Glucose 100 MG/DL (74-106) Calcium Level 8.2 MG/DL (8.5-10.1) Magnesium Level 2.2 MG/DL (1.5-2.5) Sodium Level 141 MEQ/L (136-145) Potassium Level 4.1 MEQ/L (3.5-5.1) Chloride Level 104 MEQ/L (98-107) Carbon Dioxide Level 32.1 MEQ/L (21.0-32.0) Anion Gap 5 MEQ/L (5-15) Estimat Glomerular Filtration Rate 108 ML/MIN (>89) Result Diagram: 01/06/1740901/06/17 0410 Imaging: Last 24 hours Impressions Chest X-Ray 01/06/17 0600 Signed Impressions: Service Date/Time: Friday, January 06, 2017 04:08 - CONCLUSION: 1. No evidence of pneumothorax. 2. New prominent area of consolidation in the medial right lower lung. Ken Denise MD Cardiovascular: RRR Telemetry: NSR Pulmonary: CTA GI/: NABS, NT Incision: dry and intact Plan: Remove pacing wires Encourage ambulation Diurese Wean O2 Possibly home tomorrow. (1) CHF (congestive heart failure), NYHA class II Plan: gentle diuresis (2) Cardiomyopathy (3) Severe aortic stenosis (4) S/P AVR (aortic valve replacement) Plan: on ASA, plavix no JEANNETTE or BB f/u labs in am HGB stable back up pacer at 40 wean off dopamine eval for transfer to stepdown today dc chest tube Kendra Ramirez MD Jan 06, 2017 10:51
[2017-01-07] VITALS (17 sets, daily range): BP systolic 126–155; BP diastolic 60–89; PULSE 54–86; RESP 16; TEMP 97.9–98.5; O2SAT 86–98
[2017-01-07] MEDS: ACETAMINOPHEN/HYDROcodone 325 MG/5 MG TAB PO PRN (00:25)
[2017-01-07] MEDS: KETOROLAC TROMETHAMINE 30 MG/ML (IVP) VIAL IV PUSH PRN (03:45)
[2017-01-07] MEDS: PANTOPRAZOLE SOD 40 MG DELAYED RELEASE TAB PO SCH (06:16)
[2017-01-07] MEDS: INSULIN ASPART SUPPLEMENTAL SCALE SQ SCH ×2 (08:00→12:00)
[2017-01-07] MEDS: CLOPIDOGREL 75 MG TAB PO SCH (08:39)
[2017-01-07] MEDS: DOCUSATE SODIUM 100 MG CAP PO SCH (08:39)
[2017-01-07] MEDS: MULTIVITAMINS/MINERALS THERAPEUTIC TAB PO SCH (08:40)
[2017-01-07] MEDS: POLYETHYLENE GLYCOL 17 GM PKG PO SCH (08:40)
[2017-01-07] MEDS: MAGNESIUM HYDROXIDE SUSP 30 ML CUP PO SCH (08:40)
[2017-01-07] MEDS: ASPIRIN 81 MG CHEW TAB PO SCH (08:40)
[2017-01-07] MEDS ORDERED: ASPI81 PO (09:41)
[2017-01-07] MEDS ORDERED: PLAV75TA29 PO (09:41)
[2017-01-07] MEDS ORDERED: LISI-519 PO (09:42)
[2017-01-07] MEDS ORDERED: THERM PO (09:42)
[2017-01-07] MEDS ORDERED: HYDR-3516 PO (09:42)
[2017-01-07] MEDS ORDERED: PANT40TA3 PO (09:42)
[2017-01-07] MEDS ORDERED: DOCU1CAP39 PO (09:42)
--- NOTE | 2017-01-07 09:46 | HHI.DS ---
Discharge Summary Admission Date Jan 03, 2017 at 05:28 Discharge Date: Jan 07, 2017 Admitting Diagnosis Severe aortic stenosis Combined systolic and diastolic heart failure (1) Severe aortic stenosis Diagnosis: Principal ICD Codes: I35.0 - Nonrheumatic aortic (valve) stenosis (2) CHF (congestive heart failure), NYHA class II Diagnosis: Principal ICD Codes: I50.9 - Heart failure, unspecified (3) Cardiomyopathy Diagnosis: Principal ICD Codes: I42.9 - Cardiomyopathy, unspecified (4) S/P AVR (aortic valve replacement) Diagnosis: Secondary ICD Codes: Z95.2 - Presence of prosthetic heart valve Procedures Minimally invasive AVR Brief History Subjective/Hospital Course: A 66-year-old patient of Dr. Jose C Jerry, Dr. Parada who apparently has been having a persistent cough off and on for years, had some bronchitis about six weeks ago with some fever and chills, some recent fatigue. She went for chest x-ray where they found that she had an enlarged heart. She was therefore sent to Dr. Parada for a cardiac workup. He did an echocardiogram that showed severe aortic stenosis with a gradient of 116 mmHg, valve area 0.4, PA pressure of 39, moderate mitral regurgitation, moderate tricuspid regurgitation. EF of 30%. The patient came in for elective heart catheterization which showed no nonobstructive coronary disease. EF of 35%. Pulmonary capillary wedge pressure of 8. PA pressure 28/13, mean of 20. RV pressure 28. Right atrial pressure of 2. We were consulted for evaluation for aortic valve replacement. PAST MEDICAL HISTORY recently diagnosed with a severe aortic stenosis, congestive heart failure with moderate to severe LV dysfunction, EF of 30-35%, cardiomyopathy. CBC/BMP: 01/06/17 0410 01/06/17 0410 Significant Findings Laboratory Tests Test 01/05/17 05:40 01/06/17 04:10 White Blood Count 12.3 TH/MM3 (4.0-11.0) Red Blood Count 2.97 MIL/MM3 (4.00-5.30) 2.75 MIL/MM3 (4.00-5.30) Hemoglobin 9.2 GM/DL (11.6-15.3) 8.6 GM/DL (11.6-15.3) Hematocrit 27.1 % (35.0-46.0) 25.3 % (35.0-46.0) Neutrophils (%) (Auto) 75.6 % (16.0-70.0) Monocytes (%) (Auto) 9.2 % (0.0-8.0) Neutrophils # (Auto) 9.3 TH/MM3 (1.8-7.7) Monocytes # (Auto) 1.1 TH/MM3 (0-0.9) Calcium Level 8.1 MG/DL (8.5-10.1) 8.2 MG/DL (8.5-10.1) Estimat Glomerular Filtration Rate 76 ML/MIN (>89) Carbon Dioxide Level 32.1 MEQ/L (21.0-32.0) Imaging Last Impressions Chest X-Ray 01/06/17 0600 Signed Impressions: Service Date/Time: Sunday, January 06, 2017 04:08 - CONCLUSION: 1. No evidence of pneumothorax. 2. New prominent area of consolidation in the medial right lower lung. Ken Denise MD PE at Discharge chest - CTA COR - RRR ABD - soft, NT, NABS Wound - dry and intact Hospital Course 01/03 surgery 1. Minimally Invasive AVR with a 23 [employer] Mosaic Tissue Valve 2. Percutaneous Right Femoral Arterial and Venous Cannulation for CPB 3. Perclose Closure of the Femoral Artery x 2 4. Intercostal Nerve Block 5. Rib Fixation crystalloid 2300cc, cell saver 525cc/ urine 1900cc "Code Blue" event called . Due to the acuity of the event, limited history is available. she was up ambulating with physical therapy approximately 5 minutes prior to the event. she was sitting in a chair when she became acutely unresponsive and hypotensive with bp 70s/30s. a "Code Blue" was called due to her unresponsiveness. When I arrived, the patient was responding and answering questions, felt fatigued. denied chest pain or SOB. endorsed feeling light-headed. She was immediately moved back into bed and lay flat. repeat BP was 110s/50s. 250cc crystalloid bolus was initiated. EKG at this time demonstrates sinus rhythm with inferior ST depressions which upon further review were present pre-operatively. Dr. Boo is at bedside. Dr Contreras performed bedside critical care echocardiogram which demonstrates grossly normal LV function without regional wall motion abnormalities. normal RV function. no pericardial effusion. underfilled left ventricle visually in parasternal short axis. review of telemetry, she was sinus y[place]ka in the 50s to NSR in the 70s throughout the event. + nausea and vomiting pt responded to fluid resuscitation 01/05 bedside echo completed by Dr Tinajero yesterday , normal LV and RV function + 4 kg , gentle diuresis , weaning off dopamine gtt SBP 160 no BB no amiodarone , back up pacer set to 40 chest tube removed today no further nausea , continue reglan for now change to prn possible transfer to step down later today Vwires left in place 01/06/17 No complaints today. Doing well. 01/07/17 No complaints. Ready for discharge. No beta durga secondary to bradycardia. Pt Condition on Discharge: Good Discharge Disposition: Disch w/ Home Health Serv Discharge Instructions DIET: Follow Instructions for: Heart Healthy Diet Activities you can perform: Weight Bearing as Jason, Shower Only-No Bath Activities to avoid: Strenuous Activity, Driving Follow up Referrals: Cardiology - 4 Weeks with Rolando Parada MD PCP Follow-up - 2 Weeks with Jose C Jerry MD Surgical - 2 Weeks with Suyapa Boo MD New Medications: Aspirin (Tgt Aspirin) 81 Mg Chw 81 MG PO DAILY for Blood Clot Prevention, #100 EA 3 Refills Clopidogrel (Plavix) 75 Mg Tab 75 MG PO DAILY for Blood Clot Prevention, #30 TAB 0 Refills Docusate Sodium (Dok) 100 Mg Cap 100 MG PO BID for Constipation, #28 CAP 0 Refills Hydrocodone/Acetaminophen (Hydrocodone-Acetamin 5-325 mg) 5 Mg-325 Mg Tablet 1 TAB PO Q3H PRN for PAIN SCALE 1 TO 5, #30 TAB 0 Refills Lisinopril (Lisinopril) 5 Mg Tab 5 MG PO DAILY for Blood Pressure Management for 30 Days, #30 TAB 1 Refill Multiple Vitamins W/ Minerals (Thera M Plus) 1 Tab 1 TAB PO DAILY for Nutritional Supplement, #100 TAB Pantoprazole (Pantoprazole) 40 Mg Tab 40 MG PO DAILY@06 for Prevent Stress Ulcers for 14 Days, TAB 0 Refills Discontinued Medications: Carvedilol (Carvedilol) 6.25 Mg Tab 6.25 MG PO BID, #60 TAB 0 Refills Digoxin (Digoxin) 0.25 Mg Tab 0.25 MG PO DAILY for Regulate Heart Beat, #30 TAB 0 Refills Furosemide (Furosemide) 40 Mg Tab 40 MG PO DAILY, #30 TAB 0 Refills Lisinopril (Lisinopril) 10 Mg Tab 10 MG PO DAILY, #30 TAB 0 Refills Kendra Ramirez MD Jan 07, 2017 09:46
== END 2017-01-07 14:40 | disposition home health service (06) | DRG 220 ==
LOC: HSDI 01-03 05:28 → HCVI 01-03 13:39 → HCPC 01-06 14:30
PROVIDERS: ADMIT Thoracic Surgery (Cardiothoracic Vascular Surgery); ATTEND Thoracic Surgery (Cardiothoracic Vascular Surgery)
PROC: B246ZZ4 Ultrasonography of Right and Left Heart, Transesophageal (ICD-10-PCS; 2017-01-03)
PROC: 3E0T3BZ Introduction of Anesthetic Agent into Peripheral Nerves and Plexi, Percutaneous Approach (ICD-10-PCS; 2017-01-03)
PROC: 02RF08Z Replacement of Aortic Valve with Zooplastic Tissue, Open Approach (ICD-10-PCS; principal; 2017-01-03 07:10)
PROC: 5A1221Z Performance of Cardiac Output, Continuous (ICD-10-PCS; 2017-01-03 07:10)
DX: I35.2 Nonrheumatic aortic (valve) stenosis with insufficiency (principal); I42.9 Cardiomyopathy, unspecified; I95.9 Hypotension, unspecified; I50.9 Heart failure, unspecified; D62 Acute posthemorrhagic anemia; I97.89 Other postprocedural complications and disorders of the circulatory system, not elsewhere classified; E86.1 Hypovolemia; R55 Syncope and collapse; R00.1 Bradycardia, unspecified; R11.2 Nausea with vomiting, unspecified
CPT/HCPCS: 71010; 80048; 82150; 82948; 83690; 83735; 85025; 85027; 86850; 86900; 86901; 86920; 87015; 87070; 87102; 87116; 87176; 87205; 87206; 88305; 88311; 93005; 93318; 94002; 94150; 94640; 94664; 94667; 94668; J0131; J0171; J0690; J1265; J1644; J1885; J1940; J2150; J2250; J2370; J2405; J2720; J2765; J3010; J3370; J3475; J3480; J7120; P9045; P9047

== ENCOUNTER → 2017-01-25 | Outpatient (CLI) | payer MEDICARE ==
[~2017-01-25] MED LIST changes: +ASPI81 PO; -CARV6.252 PO; -DIGO0.25 PO; +DOCU1CAP39 PO; -FURO40TA PO; +HYDR-3516 PO; +LISI-519 PO; -LISI10TA3 PO; +PANT40TA3 PO; +PLAV75TA29 PO; +THERM PO
[2017-01-25 10:51] LABS: BICARBONATE 29.3 MEQ/L (21.0-32.0); POTASSIUM 4.8 MEQ/L (3.5-5.1)
== END ==
LOC: CLAB 09:09
PROVIDERS: ATTEND Thoracic Surgery (Cardiothoracic Vascular Surgery)
DX: I50.9 Heart failure, unspecified (principal)
CPT/HCPCS: 36415; 80048

== ENCOUNTER → 2017-05-24 | Outpatient (CLI) | payer MEDICARE ==
[2017-05-24 11:46] LABS: BICARBONATE 29.7 MEQ/L (21.0-32.0); CALCIUM 9.2 MG/DL (8.5-10.1); CREATININE 0.93 MG/DL (0.50-1.00)
== END ==
LOC: CLAB 09:57
PROVIDERS: ATTEND Internal Medicine Interventional Cardiology
DX: I42.9 Cardiomyopathy, unspecified (principal); Z79.899 Other long term (current) drug therapy
CPT/HCPCS: 36415; 80048

== ENCOUNTER → 2017-07-06 | Outpatient (CLI) | DX: I10 Essential (primary) hypertension (principal); I50.9 Heart failure, unspecified; Q25.3 Supravalvular aortic stenosis; Z79.899 Other long term (current) drug therapy ==

== ENCOUNTER → 2017-07-20 | Outpatient (CLI) | payer MEDICARE ==
[2017-07-20 10:08] LABS: BICARBONATE 28.7 MEQ/L (21.0-32.0); CALCIUM 9.4 MG/DL (8.5-10.1); CREATININE 1.21 MG/DL (0.50-1.00)
== END ==
LOC: CLAB 09:06
PROVIDERS: ATTEND Internal Medicine Interventional Cardiology
DX: I10 Essential (primary) hypertension (principal); Z79.899 Other long term (current) drug therapy
CPT/HCPCS: 36415; 80048